=== PATIENT | male | born 1980 | race Caucasian/White ===

== ENCOUNTER 2017-03-11 20:32 | Emergency (ER) | payer OTHER ==
[~2017-03-11] VITALS: Ht 177.8 cm; Wt 93.0 kg
[~2017-03-11 20:32] MED LIST: AMRIX; BABY81CH; COLA100C2; ECOT325T5; EXCEDRIN; FLEXERIL; OXYC10TA97; PERC5TAB8; TRAM50TA2; VICO5TAB
[2017-03-11 20:46] VITALS: BP 125/81
[2017-03-11] MEDS ORDERED: AUGM875T27 PO (21:40)
[2017-03-11] MEDS ORDERED: HYDR-3713 PO (21:40)
[2017-03-11] MEDS ORDERED: AUGMENTIN 875 MG TAB PO ONE (21:45)
[2017-03-11] MEDS ORDERED: NORCO 5/325MG TABLET (BULK FOR ED) PO ONE (21:45)
--- NOTE | 2017-03-12 03:13 | REP ---
Clinical: Trauma. Technique: AP, lateral, bilateral oblique views right wrist . Findings: The carpal bones, surrounding osseous structures, soft tissues, and joint spaces are normal. There is no evidence for acute fracture or dislocation. No subcutaneous emphysema or radiodense foreign body. Impression: No acute fracture or dislocation Signed by Lane Ross MD 03/12/2017 03:04 A
--- NOTE | 2017-03-12 03:17 | REP ---
Clinical: Trauma. Technique: AP, lateral, bilateral oblique views right hand . Findings: The osseous structures and joint spaces are intact and normal. There is no evidence for acute fracture or dislocation. Surrounding soft tissues are unremarkable. No subcutaneous emphysema or radiodense foreign body. Impression: Normal examination. No acute fracture or dislocation. Signed by Lane Ross MD 03/12/2017 03:09 A
== END 2017-03-11 22:00 | disposition home or self-care (01) ==
LOC: M ED 21:56
DX: S60.221A Contusion of right hand, initial encounter (principal); W20.8XXA Other cause of strike by thrown, projected or falling object, initial encounter; Y92.89 Other specified places as the place of occurrence of the external cause; Y93.89 Activity, other specified; Y99.0 Civilian activity done for income or pay; G89.29 Other chronic pain; Z88.8 Allergy status to other drugs, medicaments and biological substances; F17.210 Nicotine dependence, cigarettes, uncomplicated

== ENCOUNTER 2017-03-25 14:38 | Emergency (ER) | payer OTHER ==
[~2017-03-25] VITALS: Ht 177.8 cm; Wt 94.8 kg
[~2017-03-25 14:38] MED LIST changes: +AUGM875T27 PO; +HYDR-3713 PO
[2017-03-25] MEDS ORDERED: NORCO, ANEXSIA 5/325MG TABLET (HYDROcodone/ACETAMINOPHEN) PO ONE (15:00)
[2017-03-25] MEDS ORDERED: ULTR50TA PO (16:53)
[2017-03-25] MEDS ORDERED: IBUP80TA PO (16:53)
[2017-03-25 17:25] VITALS: BP 148/82
--- NOTE | 2017-03-25 17:50 | REP ---
LUMBOSACRAL SPINE: Five views of the lumbosacral spine are performed. There is no compression fracture. There is slight anterior listhesis of L4 and L5, unchanged since prior exam of 10/02/2013. There is evidence of prior laminectomy at L4 and L5 with pedicle screws at L4, L5, and S1. There are disc spacers at L4-5 and L5-S1. Posterior elements of L1-L3 are intact. IMPRESSION: Post surgical changes. No evidence of acute fracture or dislocation. Signed by Juan David Champagne MD 03/26/2017 04:04 P
== END 2017-03-25 17:26 | disposition home or self-care (01) ==
LOC: M ED 17:06
DX: S30.0XXA Contusion of lower back and pelvis, initial encounter (principal); S33.9XXA Sprain of unspecified parts of lumbar spine and pelvis, initial encounter; W01.198A Fall on same level from slipping, tripping and stumbling with subsequent striking against other object, initial encounter; Y92.89 Other specified places as the place of occurrence of the external cause; Y93.89 Activity, other specified; Y99.0 Civilian activity done for income or pay; Z88.8 Allergy status to other drugs, medicaments and biological substances; F17.210 Nicotine dependence, cigarettes, uncomplicated

== ENCOUNTER → 2017-11-19 | Outpatient (CLI) | payer OTHER | LOC: M RAD 13:50 | DX: K60.3 Anal fistula (principal) | CPT/HCPCS: 74018 ==

== ENCOUNTER → 2018-01-20 | Outpatient (CLI) | payer OTHER ==
[2018-01-20 13:15] LABS: ALBUMIN/GLOBULIN RATIO 1.03 (1.00-1.93); ALKALINE PHOSPHATASE 70 U/L (45-117); ALT/SGPT 107 U/L (12-78); ANION GAP 4 MEQ/L (8-16); AST/SGOT 45 U/L (7-37); BILIRUBIN,TOTAL 0.5 MG/DL (0.2-1.0); BLOOD UREA NITROGEN 14 MG/DL (7-18); CALCIUM LEVEL 8.9 MG/DL (8.5-10.1); CARBON DIOXIDE LEVEL 30 MEQ/L (21-32); CHLORIDE LEVEL 105 MEQ/L (98-107); CREATININE FOR GFR 0.79 MG/DL (0.70-1.30); GLOMERULAR FILTRATION RATE > 60.0 (>60); GLUCOSE, FASTING 93 MG/DL (70-100); POTASSIUM SERUM 4.8 MEQ/L (3.5-5.1); SODIUM LEVEL 139 MEQ/L (136-145); TOTAL PROTEIN 7.9 GM/DL (6.4-8.2)
[2018-01-20 13:24] LABS: HEMOGLOBIN 14.7 g/dl (14.0-18.0); MEAN CORPUSCULAR HEMOGLOBIN 28.6 pg (27.0-33.0); MEAN CORPUSCULAR HGB CONC 32.7 g/dl (32.0-36.5); MEAN CORPUSCULAR VOLUME 87.5 fl (80.0-96.0); PLATELET COUNT, AUTOMATED 194 10^3/uL (150-450); RED BLOOD COUNT 5.14 10^6/uL (4.30-6.10); RED CELL DISTRIBUTION WIDTH 13.5 % (11.5-14.5); WHITE BLOOD COUNT 6.2 10^3/uL (4.0-10.0)
[2018-01-20 14:02] LABS: HIV 1&2 SCREEN CENTAUR NEGATIVE (NEGATIVE)
[2018-01-20 14:29] LABS: CHLAMYDIA DNA AMPLIFICATION NEGATIVE (NEGATIVE); GC DNA AMPLIFICATION NEGATIVE (NEGATIVE)
[2018-01-20 14:40] LABS: HEPATITIS B SURFACE ANTIGEN POSITIVE (NEGATIVE); HEPATITIS C VIRUS ABY INDEX > 11.0 INDEX (<0.8)
== END ==
LOC: M LAB 12:10
DX: F11.20 Opioid dependence, uncomplicated (principal)
CPT/HCPCS: 93005

== ENCOUNTER 2018-02-22 08:02 | Emergency (ER) | payer OTHER | END 2018-02-22 09:47 | disposition left against medical advice (07) | LOC: M ED 08:02 | DX: S39.012A Strain of muscle, fascia and tendon of lower back, initial encounter (principal); X50.9XXA Other and unspecified overexertion or strenuous movements or postures, initial encounter; Y92.89 Other specified places as the place of occurrence of the external cause; G89.29 Other chronic pain; F17.200 Nicotine dependence, unspecified, uncomplicated | CPT/HCPCS: 72110 ==

== ENCOUNTER 2018-05-13 10:48 | Emergency (ER) | payer OTHER ==
[2018-05-13] MEDS: ACETAMINOPHEN TAB 650MG DOSE (2X325MG) PO (12:51)
[2018-05-13] MEDS: IBUPROFEN 600 MG TAB PO (12:52)
== END 2018-05-13 13:22 | disposition home or self-care (01) ==
LOC: M ED 10:48
DX: Z04.1 Encounter for examination and observation following transport accident (principal); S93.401A Sprain of unspecified ligament of right ankle, initial encounter; S70.12XA Contusion of left thigh, initial encounter; V39.9XXA Occupant (driver) (passenger) of three-wheeled motor vehicle injured in unspecified traffic accident, initial encounter; Y92.89 Other specified places as the place of occurrence of the external cause; M23.92 Unspecified internal derangement of left knee; F17.200 Nicotine dependence, unspecified, uncomplicated; Z79.899 Other long term (current) drug therapy
CPT/HCPCS: 72072

== ENCOUNTER 2018-08-14 05:30 | Inpatient (IN) | payer MEDICAID, OTHER ==
[2018-08-14] MEDS: NS 1,000 ML IV ×6 (05:49→20:39)
[2018-08-14 05:50] LABS: HEMOGLOBIN 14.4 g/dl (13.5-17.5); MEAN CORPUSCULAR HEMOGLOBIN 28.9 pg (27.0-33.0); MEAN CORPUSCULAR HGB CONC 33.5 g/dl (32.0-36.5); MEAN CORPUSCULAR VOLUME 86.3 fl (80.0-96.0); PLATELET COUNT, AUTOMATED 215 10^3/uL (150-450); RED BLOOD COUNT 4.98 10^6/uL (4.30-6.10); RED CELL DISTRIBUTION WIDTH 12.8 % (11.5-14.5); WHITE BLOOD COUNT 13.7 10^3/uL (4.0-10.0)
[2018-08-14] MEDS: HALOPERIDOL 5 MG/ML VIAL (J1630) IV (05:55)
[2018-08-14] MEDS: diphenhydrAMINE INJ 50MG/ML VIAL (J1200) IV (06:00)
[2018-08-14 06:53] LABS: ACETAMINOPHEN LEVEL < 2.0 UG/ML (10.0-30.0); ALBUMIN 4.4 GM/DL (3.2-5.2); ALKALINE PHOSPHATASE 68 U/L (45-117); ALT/SGPT 116 U/L (12-78); ANION GAP 11 MEQ/L (8-16); AST/SGOT 234 U/L (7-37); BILIRUBIN,DIRECT 0.3 MG/DL (0.0-0.2); BILIRUBIN,TOTAL 0.9 MG/DL (0.2-1.0); BLOOD UREA NITROGEN 30 MG/DL (7-18); CARBON DIOXIDE LEVEL 25 MEQ/L (21-32); CHLORIDE LEVEL 105 MEQ/L (98-107); CPK CREATINE PHOSPHOKINASE 7658 U/L (39-308); CREATININE FOR GFR 1.04 MG/DL (0.70-1.30); ETHYL ALCOHOL (ETHANOL) < 0.003 % (0.000-0.010); GLOMERULAR FILTRATION RATE > 60.0 (>60); GLUCOSE, FASTING 96 MG/DL (70-100); POTASSIUM SERUM 3.8 MEQ/L (3.5-5.1); SALICYLATE LEVEL 2.4 MG/DL (5.0-30.0); SODIUM LEVEL 141 MEQ/L (136-145); TOTAL PROTEIN 8.4 GM/DL (6.4-8.2)
[2018-08-14] MEDS ORDERED: ONDANSETRON 4MG/2ML VIAL (J2405) IV (08:15)
[2018-08-14] MEDS: ENOXAPARIN 40 MG/0.4 ML SYRINGE (J1650) SC (11:10)
[2018-08-14 17:18] LABS: AMPHETAMINES LEVEL URINE NEGATIVE (NEGATIVE); BARBITURATES URINE NEGATIVE (NEGATIVE); BENZODIAZEPINES URINE NEGATIVE (NEGATIVE); CANNABINOIDS URINE NEGATIVE (NEGATIVE); COCAINE METABOLITE URINE NEGATIVE (NEGATIVE); METHADONE URINE NEGATIVE (NEGATIVE); OPIATES URINE POSITIVE (NEGATIVE); PHENCYCLIDINE URINE NEGATIVE (NEGATIVE)
[2018-08-14] MEDS: BUPRENORPHINE/NALOXONE 8-2MG SUBLINGUAL TABLET(SUBOXONE) PO (17:49)
[2018-08-14] MEDS: GABAPENTIN 300 MG CAP PO (20:39)
[2018-08-14] MEDS: NICOTINE 21MG/24HR 1 EA TRANSDERMAL TD (20:39)
[2018-08-15] MEDS: IBUPROFEN 600 MG TAB PO (03:24)
[2018-08-15] MEDS: NS 1,000 ML IV ×4 (04:48→22:57)
[2018-08-15 05:56] LABS: HEMATOCRIT 37.1 % (42.0-52.0); MEAN CORPUSCULAR HEMOGLOBIN 29.2 pg (27.0-33.0); MEAN CORPUSCULAR HGB CONC 32.6 g/dl (32.0-36.5); MEAN CORPUSCULAR VOLUME 89.6 fl (80.0-96.0); PLATELET COUNT, AUTOMATED 120 10^3/uL (150-450); RED BLOOD COUNT 4.14 10^6/uL (4.30-6.10); RED CELL DISTRIBUTION WIDTH 12.9 % (11.5-14.5); WHITE BLOOD COUNT 5.1 10^3/uL (4.0-10.0)
[2018-08-15 06:06] LABS: HEMOGLOBIN 12.1 g/dl (13.5-17.5)
[2018-08-15 06:37] LABS: ALBUMIN 2.9 GM/DL (3.2-5.2); ALBUMIN/GLOBULIN RATIO 0.88 (1.00-1.93); ALKALINE PHOSPHATASE 60 U/L (45-117); ALT/SGPT 81 U/L (12-78); ANION GAP 7 MEQ/L (8-16); AST/SGOT 129 U/L (7-37); BILIRUBIN,TOTAL 0.4 MG/DL (0.2-1.0); BLOOD UREA NITROGEN 13 MG/DL (7-18); CALCIUM LEVEL 7.8 MG/DL (8.5-10.1); CARBON DIOXIDE LEVEL 26 MEQ/L (21-32); CHLORIDE LEVEL 110 MEQ/L (98-107); CPK CREATINE PHOSPHOKINASE 2525 U/L (39-308); CREATININE FOR GFR 0.64 MG/DL (0.70-1.30); GLOMERULAR FILTRATION RATE > 60.0 (>60); GLUCOSE, FASTING 91 MG/DL (70-100); POTASSIUM SERUM 3.6 MEQ/L (3.5-5.1); SODIUM LEVEL 143 MEQ/L (136-145); TOTAL PROTEIN 6.2 GM/DL (6.4-8.2)
[2018-08-15] MEDS: BUPRENORPHINE/NALOXONE 8-2MG SUBLINGUAL TABLET(SUBOXONE) PO (08:57)
[2018-08-15] MEDS: GABAPENTIN 300 MG CAP PO ×3 (08:57→20:29)
[2018-08-15] MEDS: ENOXAPARIN 40 MG/0.4 ML SYRINGE (J1650) SC (08:58)
[2018-08-15 10:10] LABS: HEPATITIS B CORE ANTIBODY IGM NEGATIVE (NEGATIVE)
[2018-08-15 10:11] LABS: HEPATITIS A ANTIBODY IGM NEGATIVE (NEGATIVE)
[2018-08-15 10:50] LABS: HIV 1&2 SCREEN CENTAUR NEGATIVE (NEGATIVE)
[2018-08-15 12:49] LABS: HEPATITIS C VIRUS ABY INDEX > 11.0 INDEX (<0.8)
[2018-08-15 12:49] LABS: HEPATITIS B SURFACE ANTIGEN POSITIVE (NEGATIVE)
[2018-08-15] MEDS: NICOTINE 21MG/24HR 1 EA TRANSDERMAL TD (20:29)
[2018-08-16] MEDS: ACETAMINOPHEN TAB 650MG DOSE (2X325MG) PO (00:32)
[2018-08-16] MEDS: NS 1,000 ML IV ×4 (05:37→21:34)
[2018-08-16 06:40] LABS: HEMATOCRIT 36.9 % (42.0-52.0); MEAN CORPUSCULAR HEMOGLOBIN 29.6 pg (27.0-33.0); MEAN CORPUSCULAR HGB CONC 32.5 g/dl (32.0-36.5); MEAN CORPUSCULAR VOLUME 90.9 fl (80.0-96.0); PLATELET COUNT, AUTOMATED 143 10^3/uL (150-450); RED BLOOD COUNT 4.06 10^6/uL (4.30-6.10); RED CELL DISTRIBUTION WIDTH 12.9 % (11.5-14.5); WHITE BLOOD COUNT 4.7 10^3/uL (4.0-10.0)
[2018-08-16 07:09] LABS: POS COUNT POS FLAG
[2018-08-16 07:30] LABS: ALBUMIN 2.9 GM/DL (3.2-5.2); ALBUMIN/GLOBULIN RATIO 0.85 (1.00-1.93); ALKALINE PHOSPHATASE 79 U/L (45-117); ALT/SGPT 81 U/L (12-78); ANION GAP 6 MEQ/L (8-16); AST/SGOT 89 U/L (7-37); BILIRUBIN,TOTAL 0.2 MG/DL (0.2-1.0); BLOOD UREA NITROGEN 10 MG/DL (7-18); CALCIUM LEVEL 8.4 MG/DL (8.5-10.1); CARBON DIOXIDE LEVEL 27 MEQ/L (21-32); CHLORIDE LEVEL 109 MEQ/L (98-107); CPK CREATINE PHOSPHOKINASE 1241 U/L (39-308); CREATININE FOR GFR 0.68 MG/DL (0.70-1.30); GLOMERULAR FILTRATION RATE > 60.0 (>60); GLUCOSE, FASTING 123 MG/DL (70-100); POTASSIUM SERUM 4.2 MEQ/L (3.5-5.1); SODIUM LEVEL 142 MEQ/L (136-145); TOTAL PROTEIN 6.3 GM/DL (6.4-8.2)
[2018-08-16] MEDS: BUPRENORPHINE/NALOXONE 8-2MG SUBLINGUAL TABLET(SUBOXONE) PO (08:34)
[2018-08-16] MEDS: GABAPENTIN 300 MG CAP PO ×3 (08:34→21:33)
[2018-08-16] MEDS: ENOXAPARIN 40 MG/0.4 ML SYRINGE (J1650) SC (08:34)
[2018-08-16] MEDS ORDERED: NS 1,000 ML IV (12:30)
[2018-08-16] MEDS: NICOTINE 21MG/24HR 1 EA TRANSDERMAL TD (21:34)
[2018-08-17 06:35] LABS: HEMATOCRIT 37.6 % (42.0-52.0); HEMOGLOBIN 12.7 g/dl (13.5-17.5); MEAN CORPUSCULAR HEMOGLOBIN 29.2 pg (27.0-33.0); MEAN CORPUSCULAR HGB CONC 33.8 g/dl (32.0-36.5); MEAN CORPUSCULAR VOLUME 86.4 fl (80.0-96.0); PLATELET COUNT, AUTOMATED 195 10^3/uL (150-450); RED BLOOD COUNT 4.35 10^6/uL (4.30-6.10); RED CELL DISTRIBUTION WIDTH 12.5 % (11.5-14.5); WHITE BLOOD COUNT 5.7 10^3/uL (4.0-10.0)
[2018-08-17 06:49] LABS: ALBUMIN 3.2 GM/DL (3.2-5.2); ALBUMIN/GLOBULIN RATIO 0.91 (1.00-1.93); ALKALINE PHOSPHATASE 67 U/L (45-117); ALT/SGPT 79 U/L (12-78); ANION GAP 5 MEQ/L (8-16); AST/SGOT 69 U/L (7-37); BILIRUBIN,TOTAL 0.3 MG/DL (0.2-1.0); BLOOD UREA NITROGEN 11 MG/DL (7-18); CALCIUM LEVEL 8.4 MG/DL (8.5-10.1); CARBON DIOXIDE LEVEL 29 MEQ/L (21-32); CHLORIDE LEVEL 108 MEQ/L (98-107); CPK CREATINE PHOSPHOKINASE 634 U/L (39-308); CREATININE FOR GFR 0.71 MG/DL (0.70-1.30); GLOMERULAR FILTRATION RATE > 60.0 (>60); GLUCOSE, FASTING 90 MG/DL (70-100); SODIUM LEVEL 142 MEQ/L (136-145); TOTAL PROTEIN 6.7 GM/DL (6.4-8.2)
[2018-08-17] MEDS: NS 1,000 ML IV (08:17)
[2018-08-17] MEDS: BUPRENORPHINE/NALOXONE 8-2MG SUBLINGUAL TABLET(SUBOXONE) PO (08:51)
[2018-08-17] MEDS: GABAPENTIN 300 MG CAP PO (08:51)
[2018-08-17] MEDS: ENOXAPARIN 40 MG/0.4 ML SYRINGE (J1650) SC (09:00)
[2018-08-18 08:09] LABS: HCV RNA NAA QUALITATIVE Positive (Negative)
[2018-08-19 08:29] LABS: HBsAG CONFIRM SCRN Confirm. indicated (Negative); HBsAG NEUTRALIZATION Positive (.)
== END 2018-08-17 10:55 | disposition home or self-care (01) | DRG 351 ==
LOC: M MS5PR 08-15 14:31 → M ED 05:30 → M ED INP 07:59 → M PCU 13:36
PROVIDERS: Hospitalist
DX: M62.82 Rhabdomyolysis (principal); B18.1 Chronic viral hepatitis B without delta-agent; F17.210 Nicotine dependence, cigarettes, uncomplicated; R74.0 Nonspecific elevation of levels of transaminase and lactic acid dehydrogenase [LDH]; D72.829 Elevated white blood cell count, unspecified; B18.2 Chronic viral hepatitis C; Z79.899 Other long term (current) drug therapy

== ENCOUNTER 2019-02-10 15:19 | Inpatient (IN) | payer MEDICAID ==
[~2019-02-10] VITALS: Ht 177.8 cm; Wt 80.9 kg
[~2019-02-10 15:19] MED LIST changes: -AUGM875T27 PO; +AUGM875T28 PO; +GABA600T4 PO; +IBUP-1022 PO; +IBUP80TA PO; +IBUPOTC PO; +NICO21PAT TD; +PATIENT COMMENT; +ROBA500T PO; +SUBO8MIS PO; +SUBO8MIS SL; +ULTR50TA8 PO
[2019-02-10] MEDS ORDERED: MAGIC MOUTHWASH SUSPENSION BTL SS ONE (18:15)
[2019-02-10] MEDS ORDERED: ADACEL/BOOSTRIX VACCINE (DIPHTH/PERTUSS/ACELL/TETANUS)0.5ML SYR (90715) IM ONE (18:15)
[2019-02-10 19:33] LABS: HEMATOCRIT 45.2 % (42.0-52.0); MEAN CORPUSCULAR HEMOGLOBIN 29.4 pg (27.0-33.0); MEAN CORPUSCULAR HGB CONC 33.2 g/dl (32.0-36.5); MEAN CORPUSCULAR VOLUME 88.6 fl (80.0-96.0); PLATELET COUNT, AUTOMATED 175 10^3/uL (150-450); WHITE BLOOD COUNT 8.3 10^3/uL (4.0-10.0)
[2019-02-10 19:51] LABS: BLOOD UREA NITROGEN 31 MG/DL (7-18); CALCIUM LEVEL 9.1 MG/DL (8.5-10.1); CARBON DIOXIDE LEVEL 26 MEQ/L (21-32); CHLORIDE LEVEL 104 MEQ/L (98-107); CREATININE FOR GFR 0.88 MG/DL (0.70-1.30); GLOMERULAR FILTRATION RATE > 60.0 (>60); GLUCOSE, FASTING 73 MG/DL (70-100); POTASSIUM SERUM 4.2 MEQ/L (3.5-5.1); SODIUM LEVEL 138 MEQ/L (136-145)
[2019-02-10 19:54] LABS: AMPHETAMINES LEVEL URINE POSITIVE (NEGATIVE); BARBITURATES URINE NEGATIVE (NEGATIVE); BENZODIAZEPINES URINE NEGATIVE (NEGATIVE); CANNABINOIDS URINE NEGATIVE (NEGATIVE); COCAINE METABOLITE URINE NEGATIVE (NEGATIVE); METHADONE URINE NEGATIVE (NEGATIVE); OPIATES URINE POSITIVE (NEGATIVE); PHENCYCLIDINE URINE NEGATIVE (NEGATIVE)
--- NOTE | 2019-02-10 22:20 | REP ---
Clinical: Altered mental status . Comparison: None . Findings: The ventricles, sulci, and cisterns are normal in position and appearance. Champagne-white differentiation is maintained. No acute intracranial hemorrhage, mass/mass effect, pathology or trauma/injury. No evidence for acute infarction. No extra-axial fluid collection. Calvarium is intact. Paranasal sinuses and mastoid air cells are clear. Impression: Normal noncontrast head CT. No evidence for acute intracranial pathology or trauma/injury. Electronically Signed by Lane Ross MD 02/10/2019 10:18 P
[2019-02-10] MEDS ORDERED: diphenhydrAMINE INJ 50MG/ML VIAL (J1200) IM ONE (23:00)
[2019-02-10] MEDS ORDERED: LORazepam 2 MG/ML VIAL (J2060) IM ONE (23:00)
[2019-02-10] MEDS ORDERED: HALOPERIDOL 5 MG/ML VIAL (J1630) IM ONE (23:00)
[2019-02-10 23:07] LABS: CPK CREATINE PHOSPHOKINASE 2147 U/L (39-308)
[2019-02-10] MEDS ORDERED: NS 2,450 ML in APPROPRIATE DILUENT 1 EA IV ONE (23:45)
[2019-02-11] MEDS ORDERED: LORazepam 2 MG/ML VIAL (J2060) IV PRN (00:15)
[2019-02-11] MEDS ORDERED: HALOPERIDOL 5 MG/ML VIAL (J1630) IV PRN (00:30)
[2019-02-11 00:39] LABS: ALBUMIN 4.4 GM/DL (3.2-5.2); ALT/SGPT 79 U/L (12-78); BILIRUBIN,DIRECT 0.5 MG/DL (0.0-0.2); BILIRUBIN,TOTAL 1.9 MG/DL (0.2-1.0); C REACTIVE PROTEIN QUANTITATIV 5.69 MG/DL (0.00-0.30); SALICYLATE LEVEL < 1.7 MG/DL (5.0-30.0); TOTAL PROTEIN 8.3 GM/DL (6.4-8.2)
[2019-02-11 00:51] VITALS: BP 112/66
[2019-02-11 00:51] LABS: ACETAMINOPHEN LEVEL < 2.0 UG/ML (10.0-30.0); MAGNESIUM LEVEL 1.9 MG/DL (1.8-2.4); TROPONIN I < 0.02 NG/ML (< 0.10)
[2019-02-11] MEDS: NS 1,000 ML IV SCH ×6 (02:43→21:57)
[2019-02-11] MEDS: HEPARIN SOD (PORCINE) 5000 UNITS/ML VIAL SC SCH ×3 (05:23→21:58)
[2019-02-11 06:00] VITALS: BP 113/64
[2019-02-11 06:05] LABS: HEMATOCRIT 39.9 % (42.0-52.0); HEMOGLOBIN 13.1 g/dl (13.5-17.5); MEAN CORPUSCULAR HEMOGLOBIN 29.4 pg (27.0-33.0); MEAN CORPUSCULAR HGB CONC 32.8 g/dl (32.0-36.5); MEAN CORPUSCULAR VOLUME 89.7 fl (80.0-96.0); RED BLOOD COUNT 4.45 10^6/uL (4.30-6.10); WHITE BLOOD COUNT 4.4 10^3/uL (4.0-10.0)
[2019-02-11 06:18] LABS: INR 1.18; PARTIAL THROMBOPLASTIN TIME 36.9 SECONDS (25.4-37.6); PROTHROMBIN TIME 15.2 SECONDS (12.1-14.4)
[2019-02-11 06:49] LABS: BLOOD UREA NITROGEN 24 MG/DL (7-18); CALCIUM LEVEL 7.5 MG/DL (8.5-10.1); CARBON DIOXIDE LEVEL 26 MEQ/L (21-32); CHLORIDE LEVEL 111 MEQ/L (98-107); CPK CREATINE PHOSPHOKINASE 1475 U/L (39-308); CREATININE FOR GFR 0.65 MG/DL (0.70-1.30); GLOMERULAR FILTRATION RATE > 60.0 (>60); GLUCOSE, FASTING 80 MG/DL (70-100); POTASSIUM SERUM 3.8 MEQ/L (3.5-5.1); SODIUM LEVEL 142 MEQ/L (136-145); TROPONIN I 0.02 NG/ML (< 0.10)
[2019-02-11 06:51] LABS: PLATELET COUNT, AUTOMATED 111 10^3/uL (150-450)
--- NOTE | 2019-02-11 07:41 | HPE ---
DATE OF ADMISSION: 02/10/2019 CHIEF COMPLAINT: Agitated behavior, confused. HISTORY OF PRESENT ILLNESS: The patient is a 38-year-old male. He has a significant past medical history of hepatitis not otherwise specified and polysubstance abuse who presents to the emergency room confused and agitated. There is a questionable psych history. Upon my encounter with the patient, he had been sedated due to agitation and belligerent behavior so the history was thus limited. Other history was obtained from the ER provider as well as the nurse at bedside and review of the chart. Previous admissions are noted for rhabdomyolysis secondary to substance abuse. As per ER provider, the patient presented complaining that he was bitten by a snake, however, after survey of the skin there was no site to suggest this. However, the patient then admittedly stated that he was sober previously from history of meth and opiate use and again started using over the past few days. This was obtained from the ER nurse. Labs on the patient on admission were notable for a CPK of 2147, urine toxicology positive for opiates and amphetamines. CT of head was negative. Unable to obtain much history from the patient. He is arousable. He cannot state how he got here. He denies any chest pain or shortness of breath. His vitals are stable. PAST MEDICAL HISTORY: As per chart, hepatitis and polysubstance abuse. PSYCH HISTORY: Not otherwise specified. ALLERGIES: No known drug allergies. CURRENT MEDICATIONS: Unknown. SURGICAL HISTORY: Unknown. FAMILY HISTORY: Unknown. REVIEW OF SYSTEMS: Unable to complete secondary to underlying mentation. VITALS ON ADMISSION: Temperature 99, pulse 103, respirations 19, satting at 97% on room air, blood pressure 140/74. PHYSICAL EXAMINATION: He is a disheveled appearing younger male who is in no apparent distress. Head is normocephalic, atraumatic. Eyes: Pupils equal round and reactive to light. Lungs: Good entry in the anterior chest. Cardiovascular: Regular rate and rhythm. Abdomen: Appears to be soft. Extremities: No edema. Neurologic: He is arousable to noxious stimuli. Moves all four extremities. LABS AND IMAGING: Completed in the ER. White count 8, hemoglobin/hematocrit (H/H) 15/45, and platelet count 175. Chemistry shows a BUN and creatinine of 3 over 0.88. CPK is 2147. Urine myoglobin is positive. Urine toxicology shows opiates and amphetamines. CT of head is unremarkable. ASSESSMENT AND PLAN: 1. Metabolic encephalopathy secondary to polysubstance abuse with opiate and methamphetamine abuse resulting in rhabdomyolysis. Will rule out other causes. Will get an ammonia level. Coags. Will get EKG. Keep on telemetry. Will cycle history his troponins. Will get Tylenol and salicylate levels. Will keep the patient on one-to-one. Will aggressively fluid hydrate with normal saline at 250 mL/hr. Will trend CPKs. Trending can be discontinued once CPK drops below 250. Will trend creatinine daily as well as the electrolytes. 2. History of hepatitis not otherwise specified. Will also get an ammonia level, coags and liver function tests. Will do Haldol as needed for hallucinations and Ativan as needed agitation. The patient will likely need a psych evaluation in the a.m. psych was already consulted in the ER, however, the medical admission was requested due to elevated CPK and positive myoglobin in the urine. 3. Supportive deep vein thrombosis (DVT) prophylaxis with heparin subcutaneous. 4. GI prophylaxis not indicated. 5. Diet. Regular as tolerated. 6. The patient to be admitted to the medical floor with telemetry, kept on one-to-one until medically stable and to be subsequently evaluated by psychiatry.
[2019-02-11 14:00] VITALS: BP 116/73
--- NOTE | 2019-02-11 16:53 | IPN ---
DATE: 02/11/2019 SUBJECTIVE: The patient is seen and examined in the room today. The patient is sleeping during the encounter. Per the sitter, the patient was able to maintain some alertness and wakefulness but then fell back to sleep. He has been sleeping most of the time. According to the patient, he came to the hospital because he got bit by a lizard, other than that he does not really remember why he came to the hospital. OBJECTIVE: VITAL SIGNS: Temperature 97.3, pulse 62, respirations 15, blood pressure 113/64, pulse oximetry 96% on room air. GENERAL: The patient is alert and awake, comfortable. HEENT: Normocephalic, atraumatic. Extraocular muscles are grossly intact. CARDIOVASCULAR: Positive S1, S2. Regular rate. LUNGS: Clear to auscultation bilaterally. ABDOMEN: Soft, nontender. Bowel sounds present. EXTREMITIES: No edema. LABORATORY DATA: WBC is 4.4, hemoglobin 13.1, hematocrit 39.9, platelet count is 111, sodium is 142, potassium 3.8, chloride 111, carbon dioxide 26, BUN 24, creatinine 0.65, GFR greater than 60, fasting glucose 80, calcium 7.4, total CK is 1475, troponin I is 0.02. ASSESSMENT AND PLAN: 1. Metabolic encephalopathy due to polysubstance abuse. The patient tested positive for opiates and amphetamines, which resulted in rhabdomyolysis. The patient presented with agitation and aggressive behavior. Sitter in place. As needed medication to help control agitation. 2. Rhabdomyolysis. IV support. Total CK is improving since admission. 3. Hepatitis B and C. The patient tested positive for hepatitis B and C. We will run viral genotype and RNA quantitative. 4. Deep vein thrombosis (DVT) prophylaxis. On heparin.
--- NOTE | 2019-02-11 21:27 | ECGEPIP ---
Stationary ECG Study [facility] Test Date: 2019-02-11 Pat Name: SALVADOR AREVALO Department: Room: [place] [address] Gender: M Group Home Counselor: CANDIDO : 1980 Requested By: ISIDRO SATURDAY Order Number: [id number] Reading MD: Luciano Rodriguez Measurements Intervals [place] Rate: 60 P: 54 [place]: 185 QRS: -25 QRSD: 87 T: 26 QT: 443 QTc: 444 Interpretive Statements SINUS RHYTHM WITH MARKED SINUS ARRHYTHMIA BORDERLINE LEFT AXIS DEVIATION SIMILAR TO 08/14/18, QT INTERVAL IS NOW MORMAL Electronically Signed On 02-11-2019 21:27:33 EDT by Luciano Rodriguez
[2019-02-11 22:00] VITALS: BP 139/82
[2019-02-12] MEDS: NS 1,000 ML IV SCH ×4 (02:32→11:56)
[2019-02-12] MEDS: HEPARIN SOD (PORCINE) 5000 UNITS/ML VIAL SC SCH (05:55)
[2019-02-12 06:00] VITALS: BP 141/81
[2019-02-12 06:11] LABS: HEMATOCRIT 38.4 % (42.0-52.0); HEMOGLOBIN 12.5 g/dl (13.5-17.5); MEAN CORPUSCULAR HEMOGLOBIN 29.6 pg (27.0-33.0); MEAN CORPUSCULAR HGB CONC 32.6 g/dl (32.0-36.5); MEAN CORPUSCULAR VOLUME 90.8 fl (80.0-96.0); PLATELET COUNT, AUTOMATED 134 10^3/uL (150-450); RED BLOOD COUNT 4.23 10^6/uL (4.30-6.10); WHITE BLOOD COUNT 4.2 10^3/uL (4.0-10.0)
[2019-02-12 06:43] LABS: BLOOD UREA NITROGEN 9 MG/DL (7-18); CALCIUM LEVEL 7.7 MG/DL (8.5-10.1); CARBON DIOXIDE LEVEL 26 MEQ/L (21-32); CHLORIDE LEVEL 110 MEQ/L (98-107); CPK CREATINE PHOSPHOKINASE 810 U/L (39-308); GLOMERULAR FILTRATION RATE > 60.0 (>60); GLUCOSE, FASTING 109 MG/DL (70-100); SODIUM LEVEL 141 MEQ/L (136-145)
--- NOTE | 2019-02-12 20:42 | DSES ---
DATE OF ADMISSION: 02/10/2019 DATE OF DISCHARGE: 02/12/2019 PRIMARY CARE PROVIDER: Matt Suarez CONSULTANTS: None. DISCHARGE DIAGNOSES: 1. Metabolic encephalopathy secondary to polysubstance abuse. 2. Rhabdomyolysis. 3. Active hepatitis B and hepatitis C. HOSPITALIZATION COURSE: The patient is a 38-year-old male, presented to [facility] on 02/10/2019 with confusion and agitated behavior and diagnostic workup started in the emergency room. The patient was found to have polysubstance usage and patient was also found to have rhabdomyolysis. Patient admitted under hospitalist service, patient was placed on nothing by mouth, started on fluid support. Medication was given to the patient to control the agitation. Sitter was ordered. Later the patient's mentation started to recover. Patient was able to tolerate more oral intake. Mental status and physical status has returned to his baseline, and patient determined stable for discharge with the recommendation to followup with primary care provider in 1 week. Patient was also recommended to avoid recreational drug usage. Patient has a history of hepatitis C and hepatitis B. Patient has an appointment with infectious disease at the beginning of February. VITAL SIGNS ON THE DAY OF DISCHARGE: Showed temperature 97.8, pulse 58, respirations 16, blood pressure 141/81, pulse oximetry 94% in room air. LABORATORY DATA: WBC 4.2, hemoglobin 12.5, hematocrit 38.4, platelet count is 134. Sodium is 141, potassium 4, chloride is 110, carbon dioxide 26, BUN is 9, creatinine 0.6, GFR greater than 60, fasting glucose is 109, calcium 7.7, total creatinine kinase 810. Urine toxicology is positive for opiates and amphetamines. Urinalysis positive for myoglobin. IMAGING STUDIES: CT of the head without contrast showed normal noncontrast head CT. No evidence of acute intracranial pathology or trauma/injury. DISCHARGE MEDICATION: None. DISCHARGE RECOMMENDATIONS: Discontinue line. Discharge home. Activity as tolerated. Diet as tolerated. Recommend patient avoid recreational drug usage. Recommend patient followup with primary care provider in 1 week. Prior to discharge, social human services assistants has been assisting in the disposition. Patient's caser shoe parts in the outpatient setting was contacted. DISCHARGE CONDITION: Fair. DISCHARGE TIME: Greater than 30 minutes including coordinating all the care and disposition planning.
[2019-02-13 11:19] LABS: HEPATITIS A ANTIBODY IGM NEGATIVE (NEGATIVE); HEPATITIS B CORE ANTIBODY IGM NEGATIVE (NEGATIVE)
[2019-02-13 11:22] LABS: HEPATITIS C VIRUS ABY INDEX > 11.0 INDEX (<0.8)
[2019-02-13 11:23] LABS: HEPATITIS B SURFACE ANTIGEN POSITIVE (NEGATIVE)
== END 2019-02-12 12:58 | disposition home or self-care (01) | DRG 812 ==
LOC: M ED 15:19 → M ED INP 23:56 → M MSPAV 02-11 00:42
PROVIDERS: ADMIT Internal Medicine; ATTEND Internal Medicine
DX: T43.621A Poisoning by amphetamines, accidental (unintentional), initial encounter (principal); M62.82 Rhabdomyolysis; F11.10 Opioid abuse, uncomplicated; G92 Toxic encephalopathy; T40.601A Poisoning by unspecified narcotics, accidental (unintentional), initial encounter; B19.20 Unspecified viral hepatitis C without hepatic coma; B19.10 Unspecified viral hepatitis B without hepatic coma; F15.10 Other stimulant abuse, uncomplicated

== ENCOUNTER → 2019-02-17 | Outpatient (REF) | payer MEDICAID, OTHER ==
[2019-02-17 16:25] LABS: INR 1.09; PROTHROMBIN TIME 14.2 SECONDS (12.1-14.4)
[2019-02-21 00:08] LABS: HEPATITIS A IgG TOTAL Negative (Negative); HEPATITIS B CORE ANTIBODY IGG Positive (Negative); HEPATITIS BE ANTIGEN Negative (Negative)
[2019-02-21 08:23] LABS: HBV HBV DNA not detected IU/mL (.)
== END ==
LOC: M SFHCPLAZ 13:49
PROVIDERS: ATTEND Internal Medicine Infectious Disease
DX: B18.2 Chronic viral hepatitis C (principal)

== ENCOUNTER → 2019-02-23 | Outpatient (CLI) | payer MEDICAID | LOC: M OUTALCOH 10:46 | PROVIDERS: ATTEND Psychiatry & Neurology Psychiatry | DX: F11.20 Opioid dependence, uncomplicated (principal); F15.10 Other stimulant abuse, uncomplicated ==

== ENCOUNTER 2019-11-03 01:18 | Emergency (ER) | payer MEDICAID ==
[~2019-11-03] VITALS: Ht 177.8 cm; Wt 86.4 kg
[2019-11-03] MEDS ORDERED: ANUS25SU PR (02:20)
[2019-11-03 02:30] VITALS: BP 125/67
== END 2019-11-03 02:56 | disposition home or self-care (01) ==
LOC: M ED 01:18
DX: K64.9 Unspecified hemorrhoids (principal); B18.1 Chronic viral hepatitis B without delta-agent; B18.2 Chronic viral hepatitis C; F17.200 Nicotine dependence, unspecified, uncomplicated; F11.10 Opioid abuse, uncomplicated; F15.10 Other stimulant abuse, uncomplicated

== ENCOUNTER 2019-11-19 21:20 | Emergency (ER) | payer MEDICAID ==
[~2019-11-19] VITALS: Ht 175.3 cm; Wt 84.1 kg
[~2019-11-19 21:20] MED LIST changes: +ANUS25SU PR
[2019-11-19] MEDS ORDERED: SUBO8MIS SL (21:46)
[2019-11-19] MEDS ORDERED: NS 1,000 ML IV ONE (22:15)
[2019-11-19 22:42] LABS: BASO % 0.1 % (0.0-1.0); EOS # 0.1 10^3/uL (0.0-0.5); EOS % 0.4 % (0.0-3.0); HEMOGLOBIN 12.6 g/dl (13.5-17.5); LYMPH # 3.2 10^3/uL (1.5-5.0); LYMPH % 26.8 % (24.0-44.0); MEAN CORPUSCULAR HEMOGLOBIN 28.4 pg (27.0-33.0); MEAN CORPUSCULAR HGB CONC 32.3 g/dl (32.0-36.5); MONO # 1.2 10^3/uL (0.0-0.8); MONO % 9.7 % (0.0-5.0); NEUTROPHILS # 7.4 10^3/uL (1.5-8.5); NEUTROPHILS % 62.5 % (36.0-66.0); PLATELET COUNT, AUTOMATED 260 10^3/uL (150-450); RED BLOOD COUNT 4.43 10^6/uL (4.30-6.10); WHITE BLOOD COUNT 11.9 10^3/uL (4.0-10.0)
[2019-11-19 23:26] LABS: ACETAMINOPHEN LEVEL < 2.0 UG/ML (10.0-30.0); ALBUMIN 2.9 GM/DL (3.2-5.2); ALT/SGPT 41 U/L (12-78); BILIRUBIN,DIRECT 0.2 MG/DL (0.0-0.2); BILIRUBIN,TOTAL 0.5 MG/DL (0.2-1.0); BLOOD UREA NITROGEN 11 MG/DL (7-18); CALCIUM LEVEL 7.8 MG/DL (8.5-10.1); CARBON DIOXIDE LEVEL 25 MEQ/L (21-32); CHLORIDE LEVEL 104 MEQ/L (98-107); CK-MB VALUE MASS 3.2 NG/ML (<3.6); CPK CREATINE PHOSPHOKINASE 263 U/L (39-308); CREATININE FOR GFR 0.59 MG/DL (0.70-1.30); ETHYL ALCOHOL (ETHANOL) < 0.003 % (0.000-0.010); GLOMERULAR FILTRATION RATE > 60.0 (>60); GLUCOSE, FASTING 113 MG/DL (70-100); MB/CK RELATIVE INDEX 1.22 (< OR =4); POTASSIUM SERUM 3.7 MEQ/L (3.5-5.1); SALICYLATE LEVEL < 1.7 MG/DL (5.0-30.0); SODIUM LEVEL 137 MEQ/L (136-145); THYROID STIMULATING HORMONE 0.225 uIU/ML (0.358-3.740); TOTAL PROTEIN 6.9 GM/DL (6.4-8.2)
[2019-11-20 01:21] LABS: MYOGLOBIN SCREEN, URINE NEGATIVE (NEGATIVE)
[2019-11-20 01:43] LABS: AMPHETAMINES LEVEL URINE POSITIVE (NEGATIVE); BARBITURATES URINE NEGATIVE (NEGATIVE); BENZODIAZEPINES URINE NEGATIVE (NEGATIVE); CANNABINOIDS URINE NEGATIVE (NEGATIVE); COCAINE METABOLITE URINE NEGATIVE (NEGATIVE); METHADONE URINE NEGATIVE (NEGATIVE); OPIATES URINE NEGATIVE (NEGATIVE); PHENCYCLIDINE URINE NEGATIVE (NEGATIVE)
[2019-11-20] MEDS ORDERED: ACETAMINOPHEN TAB 650MG DOSE (2X325MG) PO ONE (04:30)
[2019-11-20 04:52] VITALS: BP 120/65
--- NOTE | 2019-11-20 15:18 | ECGEPIP ---
[facility] - ED Test Date: 2019-11-19 Pat Name: SALVADOR AREVALO Department: Room: - Gender: Male Intensive Care Specialist: DANA : 1980 Requested By: LOUIS Wheatley Order Number: [id number] Reading MD: Tavon Valderrama Measurements Intervals [place] Rate: 90 P: 70 [place]: 172 QRS: -22 QRSD: 76 T: 38 QT: 382 QTc: 469 Interpretive Statements SINUS RHYTHM SEPTAL MYOCARDIAL INFARCTION, OF INDETERMINATE AGE Similar to tracing done 02-11-19 with increased rate and increased artifact Electronically Signed on 11-20-2019 15:18:20 EST by Tavon Valderrama
== END 2019-11-20 05:38 | disposition home or self-care (01) ==
LOC: M ED 21:20
DX: F15.10 Other stimulant abuse, uncomplicated (principal); I21.29 ST elevation (STEMI) myocardial infarction involving other sites; F17.200 Nicotine dependence, unspecified, uncomplicated; Z79.899 Other long term (current) drug therapy
CPT/HCPCS: 80048; 80076; 80307; 81001; 81002; 82550; 82553; 84443; 85025; 93005; 96360; 96361; 99285; G0480

== ENCOUNTER 2020-04-05 05:52 | Inpatient (IN) | payer MEDICAID ==
[2020-04-05 06:45] LABS: BASO % 0.2 % (0.0-1.0); EOS # 0.1 10^3/uL (0.0-0.5); EOS % 0.5 % (0.0-3.0); HEMATOCRIT 40.6 % (42.0-52.0); HEMOGLOBIN 14.1 g/dl (13.5-17.5); LYMPH # 1.8 10^3/uL (1.5-5.0); MEAN CORPUSCULAR HEMOGLOBIN 29.7 pg (27.0-33.0); MEAN CORPUSCULAR HGB CONC 34.7 g/dl (32.0-36.5); MEAN CORPUSCULAR VOLUME 85.5 fl (80.0-96.0); MONO # 1.5 10^3/uL (0.0-0.8); MONO % 15.5 % (0.0-5.0); NEUTROPHILS # 6.4 10^3/uL (1.5-8.5); NEUTROPHILS % 65.6 % (36.0-66.0); PLATELET COUNT, AUTOMATED 188 10^3/uL (150-450); RED BLOOD COUNT 4.75 10^6/uL (4.30-6.10); WHITE BLOOD COUNT 9.8 10^3/uL (4.0-10.0)
[2020-04-05] MEDS ORDERED: NS 1,000 ML IV ONE ×2 (07:00→07:45)
--- NOTE | 2020-04-05 07:18 | ECGEPIP ---
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
[2020-04-05 07:29] LABS: ACETAMINOPHEN LEVEL < 2.0 UG/ML (10.0-30.0); ALBUMIN 3.6 GM/DL (3.2-5.2); ALT/SGPT 107 U/L (12-78); BILIRUBIN,DIRECT 0.5 MG/DL (0.0-0.2); BILIRUBIN,TOTAL 1.2 MG/DL (0.2-1.0); BLOOD UREA NITROGEN 20 MG/DL (7-18); CALCIUM LEVEL 8.4 MG/DL (8.5-10.1); CARBON DIOXIDE LEVEL 28 MEQ/L (21-32); CHLORIDE LEVEL 101 MEQ/L (98-107); CK-MB VALUE MASS 16.7 NG/ML (<3.6); CPK CREATINE PHOSPHOKINASE 6755 U/L (39-308); ETHYL ALCOHOL (ETHANOL) < 0.003 % (0.000-0.010); GLOMERULAR FILTRATION RATE > 60.0 (>60); GLUCOSE, FASTING 142 MG/DL (70-100); MB/CK RELATIVE INDEX 0.25 (< OR =4); POTASSIUM SERUM 3.2 MEQ/L (3.5-5.1); SALICYLATE LEVEL < 1.7 MG/DL (5.0-30.0); SODIUM LEVEL 137 MEQ/L (136-145); TOTAL PROTEIN 7.5 GM/DL (6.4-8.2); TROPONIN I 0.05 NG/ML (< 0.10)
[2020-04-05] MEDS ORDERED: HALOPERIDOL 5MG/ML VIAL (J1630 PER 1) IV PRN (09:15)
[2020-04-05] MEDS ORDERED: HALOPERIDOL 5MG/ML VIAL (J1630 PER 1) IM STA (09:48)
[2020-04-05] MEDS ORDERED: LORazepam 2 MG/ML VIAL (J2060) IM STA (09:49)
[2020-04-05] MEDS ORDERED: diphenhydrAMINE 50MG/ML VIAL (J1200) As Ordered ONE (10:21)
[2020-04-05] MEDS ORDERED: diphenhydrAMINE 50MG/ML VIAL (J1200) IV PRN (10:30)
[2020-04-05 11:12] VITALS: BP 110/58
[2020-04-05] MEDS: NS 1,000 ML IV SCH ×2 (11:24→21:12)
[2020-04-05 14:00] VITALS: BP 100/56
--- NOTE | 2020-04-05 15:09 | HPEPDOC ---
General Date of Admission 04/05/20 Date of Service: April 05, 2020 Chief Complaint The patient is a 39-year-old male admitted with a reason for visit of Drug Abuse. History of Present Illness 39 year old male with polysubstance abuse, hepatitis B and hepatitis C presented to the ED after abuse of Amanda in an anxious and agitated state. Very talkative, unable to sit still oriented to person and place but with features of psychosis. He goes on about some paperwork which he had with him when he came and was talking about his sister. He was found to have rhabdomyolysis and abnormal LFTs. He was admitted to hospitalist service for Rhabdomyolysis and transaminitis. While in the ED he was getting very agitated and pulling out his IV trying to walk out of the room pacing, murmuring and very psychotic so was given Haldol 2 mg IV. To this he had what looks like an adverse reaction acute dystonic reaction, he was very diaphoretic with jerking movements of yonathan body and limbs which he was unable to control. He was asking us to stop them from moving. He got ativan 2 mg after which he fell asleep and his abnormal movements stopped. 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 Dyspnea, Lt Headedness Gastrointestinal: Denies: Nausea, Vomiting, Abdominal Pain, Diarrhea Genitourinary: Denies: Dysuria, Frequency, Incontinence, Retention Hematologic: Denies: Bruising, Bleeding Excessively Neurological: Denies: Weakness, Numbness, Change in speech, Confusion Psych: Reports: Anxiety, Other Psych (psychosis, agitation) Physical Examination General Exam: Positive: Alert, Cooperative, Other (pacing, talking constantsly) ENT Exam: Positive: Atraumatic, Mucous membr. moist/pink, Pharynx Normal Neck Exam: Positive: Supple; Negative: JVD, thyromegaly Chest Exam: Positive: Clear to auscultation, Normal air movement Heart Exam: Positive: Tachycardic, Bradycardic, Regular Rhythm, Normal S1, Normal S2; Negative: Gallops, Murmurs, Rubs Telemetry: Positive: No significant arrhythmia Abdomen Exam: Positive: Normal bowel sounds, Soft; Negative: Tenderness, Hepatospenomegaly Extremity Exam: Positive: Normal pulses; Negative: Clubbing, Cyanosis, Edema Skin Exam: Positive: Nl turgor and temperature Neuro Exam: Positive: Normal Gait, Strength at 5/5 X4 ext, Normal Tone Psych Exam: Positive: Anxiety, Memory Intact, Other (agitation, oriented to place and person) Vital Signs Vital Signs Date Time Temp Pulse Resp B/P (MAP) Pulse Ox O2 Delivery O2 Flow Rate FiO2 04/05/20 07:31 127 20 163/92 (115) 96 Room Air 04/05/20 06:01 99.0 Laboratory Data Labs 24H Laboratory Tests 2 04/05/20 06:30: Myoglobin 800H 04/05/20 06:31: Immature Granulocyte % (Auto) 0.2, Neutrophils (%) (Auto) 65.6, Lymphocytes (%) (Auto) 18.0L, Monocytes (%) (Auto) 15.5H, Eosinophils (%) (Auto) 0.5, Basophils (%) (Auto) 0.2, Neutrophils # (Auto) 6.4, Lymphocytes # (Auto) 1.8, Monocytes # (Auto) 1.5H, Eosinophils # (Auto) 0.1, Basophils # (Auto) 0.0, Nucleated Red Blood Cells % (auto) 0.0, Anion Gap 8, Glomerular Filtration Rate > 60.0, Calcium Level 8.4L, Total Bilirubin 1.2H, Direct Bilirubin 0.5H, Aspartate Amino Transf (AST/SGOT) 341H, Alanine Aminotransferase (ALT/SGPT) 107H, Alkaline Phosp hatase 67, Total Creatine Kinase 6755H, Creatine Kinase MB 16.7H, Creatine Kinase MB Relative Index 0.25, Troponin I 0.05, Total Protein 7.5, Albumin 3.6, Albumin/Globulin Ratio 0.9, Thyroid Stimulating Hormone (TSH) 1.320, Salicylates Level < 1.7L, Acetaminophen Level < 2.0L, Ethyl Alcohol Level < 0.003 CBC/BMP Laboratory Tests 04/05/20 06:31 Assessment/Plan 39 year old male with polysubstance abuse, hepatitis B and hepatitis C presented to the ED after abuse of Amanda in an anxious and agitated state. Very talkative, unable to sit still oriented to person and place but with features of psychosis. He goes on about some paperwork which he had with him when he came and was talking about his sister. He was found to have rhabdomyolysis and abnormal LFTs. He was admitted to hospitalist service for Rhabdomyolysis and transaminitis. Rhabdomyolysis will continue with IVF Psychosis From polysubstace abuse. recreational drug use psychosis will give benadryl / atival prn Cogentin prn if acute dystonia. psych consult after improvement of Rhabdomyolysis if still psychotic. Street Drug interaction with Haldol Vs acute dystonic reaction due to Haldol most likely his street drugs had an interaction with Haldol so had severe diaphoresis and onset of jerky movements with IV haldol. He may have gone into acute withdrawal from his street drugs on administration of Haldol. Discussed with Dr Mancuso from Psychiatry about possibility of Acute dystonic react ion from IV haldol. as per him very unusual as it does not have the first pass metabolism in liver w hen give IV more likely when given po. will given ativan prn. If continues will give cogentin im. Possible withdrawal patient with jerky movements of body and limbs responded to ativan most likely withdrawing from the street drugs that he uses He claims he did not take his subaxone for 1 day thats causing him this jerks. He buys it on the street ativan prn. Transaminitis this is probably due to rhabdomyolysis and chronic hepatitis B and C. will monitor Chronic Hepatitis b and Hepatitis C no acute issues at this point. Plan / VTE VTE Prophylaxis Ordered?: Yes EHSAN LUTZ MD April 05, 2020 08:06
[2020-04-05] MEDS ORDERED: BENZTROPINE MESYLATE 2MG/2ML VIAL IM PRN (17:00)
[2020-04-05] MEDS ORDERED: LORazepam 2 MG/ML VIAL (J2060) As Ordered ONE ×2 (17:45→23:06)
[2020-04-05] MEDS: LORazepam 2 MG/ML VIAL (J2060) IV PRN ×2 (17:49→23:10)
[2020-04-05 17:50] LABS: ALBUMIN 3.1 GM/DL (3.2-5.2); ALT/SGPT 94 U/L (12-78); BLOOD UREA NITROGEN 16 MG/DL (7-18); CALCIUM LEVEL 8.1 MG/DL (8.5-10.1); CARBON DIOXIDE LEVEL 30 MEQ/L (21-32); CHLORIDE LEVEL 104 MEQ/L (98-107); CREATININE FOR GFR 0.63 MG/DL (0.70-1.30); GLOMERULAR FILTRATION RATE > 60.0 (>60); GLUCOSE, FASTING 102 MG/DL (70-100); POTASSIUM SERUM 3.6 MEQ/L (3.5-5.1); SODIUM LEVEL 138 MEQ/L (136-145); TOTAL PROTEIN 6.9 GM/DL (6.4-8.2)
[2020-04-05 19:09] LABS: CPK CREATINE PHOSPHOKINASE 3786 U/L (39-308)
[2020-04-05 22:00] VITALS: BP 119/66
[2020-04-06] MEDS: ACETAMINOPHEN TAB 650MG DOSE (2X325MG) PO PRN ×2 (01:53→22:00)
[2020-04-06] MEDS: NS 1,000 ML IV SCH ×2 (04:50→14:39)
[2020-04-06 06:00] VITALS: BP 115/68
[2020-04-06 06:25] LABS: HEMATOCRIT 38.3 % (42.0-52.0); HEMOGLOBIN 12.5 g/dl (13.5-17.5); MEAN CORPUSCULAR HEMOGLOBIN 28.9 pg (27.0-33.0); MEAN CORPUSCULAR HGB CONC 32.6 g/dl (32.0-36.5); MEAN CORPUSCULAR VOLUME 88.5 fl (80.0-96.0); PLATELET COUNT, AUTOMATED 150 10^3/uL (150-450); RED BLOOD COUNT 4.33 10^6/uL (4.30-6.10); WHITE BLOOD COUNT 5.7 10^3/uL (4.0-10.0)
[2020-04-06 07:00] LABS: ALBUMIN 2.6 GM/DL (3.2-5.2); ALT/SGPT 81 U/L (12-78); BILIRUBIN,TOTAL 0.6 MG/DL (0.2-1.0); BLOOD UREA NITROGEN 15 MG/DL (7-18); CALCIUM LEVEL 7.6 MG/DL (8.5-10.1); CARBON DIOXIDE LEVEL 29 MEQ/L (21-32); CHLORIDE LEVEL 107 MEQ/L (98-107); CREATININE FOR GFR 0.62 MG/DL (0.70-1.30); GLOMERULAR FILTRATION RATE > 60.0 (>60); GLUCOSE, FASTING 102 MG/DL (70-100); POTASSIUM SERUM 3.9 MEQ/L (3.5-5.1); SODIUM LEVEL 141 MEQ/L (136-145); TOTAL PROTEIN 5.8 GM/DL (6.4-8.2)
[2020-04-06 08:18] LABS: CPK CREATINE PHOSPHOKINASE 1771 U/L (39-308)
[2020-04-06] MEDS: ENOXAPARIN 40MG/0.4ML SYRINGE (J1650 PER 10MG) SC SCH (09:18)
[2020-04-06 09:56] LABS: HEPATITIS B CORE ANTIBODY IGM NEGATIVE (NEGATIVE)
[2020-04-06 09:59] LABS: HEPATITIS A ANTIBODY IGM NEGATIVE (NEGATIVE)
[2020-04-06 10:08] LABS: HEPATITIS B SURFACE ANTIGEN POSITIVE (NEGATIVE); HEPATITIS C VIRUS ABY INDEX > 11.0 INDEX (<0.8)
--- NOTE | 2020-04-06 11:44 | IPNPDOC ---
Subjective Date Seen The patient was seen on 04/06/20. Subjective Chief Complaint/HPI No further jerky movements of the body, slept all night did get a dose of ativan last night. Today he says that he wants to go back to [facility] on discharge so that he can get back on his Suboxone. He said he last took subaxone just over a month ago. He asked me if i could prescribe him a few doses to tide him over till he gets an appointment at [facility]. He said that was the only reason that he had come to the hospital to get some prescription for Suboxone. Otherwise he does not offer any complaints. Will ask PFS to see if we can set up an appointment at [facility] for him . Objective Physical Examination General Exam: Positive: Alert, Cooperative, Other (pacing, talking constantsly) ENT Exam: Positive: Atraumatic, Mucous membr. moist/pink, Pharynx Normal Neck Exam: Positive: Supple; Negative: JVD, thyromegaly Chest Exam: Positive: Clear to auscultation, Normal air movement Heart Exam: Positive: Tachycardic, Bradycardic, Regular Rhythm, Normal S1, Normal S2; Negative: Gallops, Murmurs, Rubs Telemetry: Positive: No significant arrhythmia Abdomen Exam: Positive: Normal bowel sounds, Soft; Negative: Tenderness, Hepatospenomegaly Extremity Exam: Positive: Normal pulses; Negative: Clubbing, Cyanosis, Edema Skin Exam: Positive: Nl turgor and temperature Neuro Exam: Positive: Normal Gait, Strength at 5/5 X4 ext, Normal Tone Psych Exam: Positive: Anxiety, Memory Intact, Other (agitation, oriented to place and person) Assessment /Plan Assessment 39 year old male with polysubstance abuse, hepatitis B and hepatitis C presented to the ED after abuse of Valery in an anxious and agitated state. Very talkative, unable to sit still oriented to person and place but with features of psychosis. He goes on about some paperwork which he had with him when he came and was talking about his sister. He was found to have rhabdomyolysis and abnormal LFTs. He was admitted to hospitalist service for Rhabdomyolysis and transaminitis. Rhabdomyolysis improving will continue with IVF Psychosis improved From polysubstace abuse. recreational drug use psychosis will give ativan prn Cogentin prn if acute dystonia. sitter Polysubstance abuse wants to go back on his Suboxone will refer to [facility] upon discharge. Street Drug interaction with Haldol Vs acute dystonic reaction due to Haldol most likely his street drugs had an interaction with Haldol so had severe diaphoresis and onset of jerky movements with IV haldol. He may have gone into acute withdrawal from his street drugs on administration of Haldol. Seems to mostly have resolved now. Discussed with Dr Mancuso from Psychiatry about possibility of Acute dystonic reaction from IV haldol. as per him very unusual as it does not have the first pass metabolism in liver when give IV more likely when given po. will given ativan prn Possible withdrawal patient with jerky movements of body and limbs responded to ativan most likely withdrawing from the street drugs that he uses He claims he did not take his subaxone for 1 day thats causing him this jerks. He buys it on the street, used to go to [facility] more than a month ago. ativan prn. Transaminitis this is probably due to rhabdomyolysis and chronic hepatitis B and C. improving Chronic Hepatitis b and Hepatitis C no acute issues at this point. Plan/VTE VTE Prophylaxis Ordered?: Yes VS, I&O, 24H, Fishbone Vital Signs/I&O Vital Signs Date Time Temp Pulse Resp B/P (MAP) Pulse Ox O2 Delivery O2 Flow Rate FiO2 04/06/20 06:00 97.0 64 17 115/68 (84) 96 Room Air 04/05/20 10:45 2.0 I&O- Last 24 Hours up to 6 AM 04/06/20 06:00 Intake Total 4860 ml Output Total 0 ml Balance 4860 ml Laboratory Data 24H LABS Laboratory Tests 2 04/05/20 16:58: Anion Gap 4L, Glomerular Filtration Rate > 60.0, Calcium Level 8.1L, Total Bilirubin 2.0#H, Aspartate Amino Transf (AST/SGOT) 258H, Alanine Aminotransferase (ALT/SGPT) 94H, Alkaline Phosphatase 54, Total Creatine Kinase 3786H, Total Protein 6.9, Albumin 3.1L, Albumin/Globulin Ratio 0.8 04/06/20 05:21: Anion Gap 5L, Glomerular Filtration Rate > 60.0, Calcium Level 7.6L, Total Bilirubin 0.6#, Aspartate Amino Transf (AST/SGOT) 172H, Alanine Aminotransferase (ALT/SGPT) 81H, Alkaline Phosphatase 55, Total Creatine Kinase 1771H, Total Protein 5.8L, Albumin 2.6L, Albumin/Globulin Ratio 0.8, Nucleated Red Blood Cells % (auto) 0.0 CBC/BMP Laboratory Tests 04/05/20 16:58 04/06/20 05:21 EHSAN LUTZ MD April 06, 2020 11:44
[2020-04-06 14:00] VITALS: BP 117/66
[2020-04-06] MEDS: MAGIC MOUTHWASH SUSPENSION BTL SSP SCH (17:45)
[2020-04-06 22:00] VITALS: BP 130/75
[2020-04-07] MEDS ORDERED: IBUPROFEN 800 MG TAB PO PRN (01:15)
[2020-04-07] MEDS: NS 1,000 ML IV SCH (01:41)
[2020-04-07 06:00] VITALS: BP 141/82
[2020-04-07] MEDS: MAGIC MOUTHWASH SUSPENSION BTL SSP SCH (07:38)
--- NOTE | 2020-04-07 08:25 | REP ---
LEFT GREAT TOE SERIES: Four views. HISTORY: Swelling and pain. FINDINGS: Four views of the left great toe demonstrate normal bones, joints, and soft tissues. No fracture or subluxation is seen. There is minimal osteophytic lipping at the 1st MTP joint. IMPRESSION: No acute bony abnormality. Minimal spurring at the 1st MTP joint. Electronically Signed by Og Duran MD 04/07/2020 08:31 A
[2020-04-07] MEDS: ENOXAPARIN 40MG/0.4ML SYRINGE (J1650 PER 10MG) SC SCH (08:40)
--- NOTE | 2020-04-07 17:15 | DS.PDOC ---
Discharge Summary General Date of Admission April 05, 2020 at 09:14 Date of Discharge 04/07/20 Discharge Summary PROCEDURES PERFORMED DURING STAY: [None]. 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 HISTORY OF PRESENT ILLNESS: See history and physical HOSPITAL COURSE: 39 year old male with polysubstance abuse, hepatitis B and hepatitis C presented to the ED after abuse of Valery in an anxious and agitated state. Very talkative, unable to sit still oriented to person and place but with features of psychosis. He goes on about some paperwork which he had with him when he came and was talking about his sister. He was found to have rhabdomyo lysis and abnormal LFTs. He was admitted to hospitalist service for Rhabdomyolysis and transaminitis. Rhabdomyolysis resolved. Recreational drug use psychosis improved From polysubstace abuse. Polysubstance abuse wants to go back on his Suboxone will refer to [address] Drug interaction with Haldol Vs acute dystonic reaction due to Haldol most likely his street drugs had an interaction with Haldol so had severe diaphoresis and onset of jerky movements with IV haldol. He may have gone into acute withdrawal from his street drugs on administration of Haldol. resolved now. Possible withdrawal patient with jerky movements of body and limbs responded to ativan most likely withdrawing from the street drugs that he uses He claims he did not take his subaxone for 1 day thats causing him this jerks. He buys it on the street, used to go to [employer] [place] more than a month ago. recieved ativan prn with good response. Transaminitis this is probably due to rhabdomyolysis and chronic hepatitis B and C. improving Chronic Hepatitis b and Hepatitis C no acute issues at this point. DISCHARGE MEDICATIONS: Please see below. ALLERGIES: Please see below. PHYSICAL EXAMINATION ON DISCHARGE: VITAL SIGNS: Please see below. General Exam: Positive: Alert, Cooperative, calm and quiet. ENT Exam: Positive: Atraumatic, Mucous membr. moist/pink, Pharynx Normal Neck Exam: Positive: Supple; Negative: JVD, thyromegaly Chest Exam: Positive: Clear to auscultation, Normal air movement Heart Exam: Positive: Tachycardic, Bradycardic, Regular Rhythm, Normal S1, Normal S2; Negative: Gallops, Murmurs, Rubs Telemetry: Positive: No significant arrhythmia Abdomen Exam: Positive: Normal bowel sounds, Soft; Negative: Tenderness, Hepatospenomegaly Extremity Exam: Positive: Normal pulses; Negative: Clubbing, Cyanosis, Edema Skin Exam: Positive: Nl turgor and temperature Neuro Exam: Positive: Normal Gait, Strength at 5/5 X4 ext, Normal Tone Psych Exam: Positive: Memory Intact LABORATORY DATA: Please see below. ACTIVITY: [As tolerated]. DIET: Regular DISPOSITION: 01 Home, Self-Care. DISCHARGE INSTRUCTIONS: Follow up at [facility] [place]. DISCHARGE CONDITION: [Stable]. TIME SPENT ON DISCHARGE: 35 minutes. Vital Signs/I&Os Vital Signs Date Time Temp Pulse Resp B/P (MAP) Pulse Ox O2 Delivery O2 Flow Rate FiO2 04/07/20 06:00 96.8 82 17 141/82 (101) 99 Room Air 04/05/20 10:45 2.0 I&O- Last 24 Hours up to 6 AM 04/07/20 07:00 Intake Total 5635 ml Output Total 1000 ml Balance 4635 ml Laboratory Data Labs 24H Laboratory Tests 2 04/07/20 05:29: Total Creatine Kinase 640H Discharge Medications Unable to Obtain Active Prescriptions or Reported Meds Allergies Coded Allergies: No Known Allergies (Unverified , 02/11/19) EHSAN LUTZ MD April 07, 2020 17:15
== END 2020-04-07 09:24 | disposition home or self-care (01) | DRG 351 ==
LOC: M ED 05:52 → M ED INP 09:14 → ENRESERV 09:32 → M MSPAV 11:04
PROVIDERS: ADMIT Internal Medicine Nephrology; ATTEND Internal Medicine Nephrology
DX: M62.82 Rhabdomyolysis (principal); B18.1 Chronic viral hepatitis B without delta-agent; B18.2 Chronic viral hepatitis C; F11.10 Opioid abuse, uncomplicated; R74.0 Nonspecific elevation of levels of transaminase and lactic acid dehydrogenase [LDH]; F29 Unspecified psychosis not due to a substance or known physiological condition

== ENCOUNTER 2020-05-08 22:40 | Emergency (ER) | payer MEDICAID ==
[~2020-05-08] VITALS: Ht 175.3 cm; Wt 85.2 kg
[2020-05-08] MEDS ORDERED: NS 1,000 ML IV ONE (22:45)
[2020-05-08] MEDS ORDERED: LORazepam 2 MG/ML VIAL IV STA ×2 (22:45→23:09)
[2020-05-08] MEDS ORDERED: LORazepam 2 MG/ML VIAL As Ordered ONE (22:47)
[2020-05-08 23:08] LABS: BASO % 0.2 % (0.0-1.0); EOS % 0.4 % (0.0-3.0); HEMATOCRIT 46.1 % (42.0-52.0); HEMOGLOBIN 14.7 g/dl (13.5-17.5); LYMPH % 20.1 % (24.0-44.0); MEAN CORPUSCULAR HEMOGLOBIN 28.1 pg (27.0-33.0); MEAN CORPUSCULAR HGB CONC 31.9 g/dl (32.0-36.5); MEAN CORPUSCULAR VOLUME 88.1 fl (80.0-96.0); MONO # 1.2 10^3/uL (0.0-0.8); MONO % 11.7 % (0.0-5.0); NEUTROPHILS # 6.8 10^3/uL (1.5-8.5); NEUTROPHILS % 67.3 % (36.0-66.0); PLATELET COUNT, AUTOMATED 253 10^3/uL (150-450); RED BLOOD COUNT 5.23 10^6/uL (4.30-6.10); WHITE BLOOD COUNT 10.1 10^3/uL (4.0-10.0)
[2020-05-08 23:46] LABS: ACETAMINOPHEN LEVEL < 2.0 UG/ML (10.0-30.0); ALBUMIN 4.2 GM/DL (3.2-5.2); ALT/SGPT 70 U/L (12-78); BILIRUBIN,DIRECT 0.2 MG/DL (0.0-0.2); BILIRUBIN,TOTAL 0.6 MG/DL (0.2-1.0); BLOOD UREA NITROGEN 17 MG/DL (7-18); CALCIUM LEVEL 9.8 MG/DL (8.5-10.1); CARBON DIOXIDE LEVEL 24 MEQ/L (21-32); CHLORIDE LEVEL 104 MEQ/L (98-107); CPK CREATINE PHOSPHOKINASE 104 U/L (39-308); CREATININE FOR GFR 1.35 MG/DL (0.70-1.30); ETHYL ALCOHOL (ETHANOL) < 0.003 % (0.000-0.010); GLOMERULAR FILTRATION RATE > 60.0 (>60); GLUCOSE, FASTING 207 MG/DL (70-100); POTASSIUM SERUM 3.8 MEQ/L (3.5-5.1); SALICYLATE LEVEL 1.9 MG/DL (5.0-30.0); SODIUM LEVEL 137 MEQ/L (136-145); TOTAL PROTEIN 8.9 GM/DL (6.4-8.2)
[2020-05-09 07:20] VITALS: BP 119/75
--- NOTE | 2020-05-09 16:13 | ECGEPIP ---
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
--- NOTE | 2020-05-11 00:27 | ECGEPIP ---
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
== END 2020-05-09 07:22 | disposition home or self-care (01) ==
LOC: M ED 22:40
DX: F19.10 Other psychoactive substance abuse, uncomplicated (principal); R00.0 Tachycardia, unspecified; Z72.0 Tobacco use
CPT/HCPCS: 80048; 80076; 82550; 84443; 85025; 93005; 93041; 94760; 96361; 96374; 96376; 99285; G0480; J2060

== ENCOUNTER 2021-05-20 16:04 | Emergency (ER) | payer MEDICAID ==
[~2021-05-20] VITALS: Ht 177.8 cm; Wt 99.0 kg
[2021-05-20] MEDS ORDERED: KETO2CR TOP (19:13)
[2021-05-20 19:21] VITALS: BP 138/89
== END 2021-05-20 19:22 | disposition home or self-care (01) ==
LOC: M ED 16:04
DX: L30.4 Erythema intertrigo (principal); K64.9 Unspecified hemorrhoids; R51.9 Headache, unspecified; K60.2 Anal fissure, unspecified; Z86.19 Personal history of other infectious and parasitic diseases; M54.9 Dorsalgia, unspecified; F17.200 Nicotine dependence, unspecified, uncomplicated; F19.10 Other psychoactive substance abuse, uncomplicated; F41.9 Anxiety disorder, unspecified

== ENCOUNTER 2022-08-28 16:19 | Emergency (ER) | payer OTHER ==
[~2022-08-28] VITALS: Ht 177.8 cm; Wt 100.0 kg
[~2022-08-28 16:19] MED LIST changes: +KETO2CR TOP
[2022-08-28] MEDS ORDERED: NALOXONE 2MG/2ML SYRINGE (J2310 PER 1MG) IV ONE (16:35)
[2022-08-28 17:19] LABS: BASO % 0.3 % (0.0-1.0); EOS # 0.2 10^3/uL (0.0-0.5); EOS % 2.5 % (0.0-3.0); HEMATOCRIT 43.9 % (42.0-52.0); HEMOGLOBIN 13.6 g/dl (13.5-17.5); LYMPH # 2.2 10^3/uL (1.5-5.0); LYMPH % 34.4 % (24.0-44.0); MEAN CORPUSCULAR VOLUME 87.3 fl (80.0-96.0); MONO # 0.8 10^3/uL (0.0-0.8); MONO % 11.6 % (2.0-8.0); NEUTROPHILS # 3.3 10^3/uL (1.5-8.5); PLATELET COUNT, AUTOMATED 118 10^3/uL (150-450); RED BLOOD COUNT 5.03 10^6/uL (4.30-6.10); WHITE BLOOD COUNT 6.5 10^3/uL (4.0-10.0)
[2022-08-28 17:43] LABS: OSMOLALITY SERUM 293 MOSM/KG (275-295)
[2022-08-28 18:05] LABS: ACETAMINOPHEN LEVEL < 2.0 UG/ML (10.0-30.0); ALBUMIN 3.6 GM/DL (3.2-5.2); ALT/SGPT 85 U/L (12-78); BILIRUBIN,DIRECT 0.3 MG/DL (0.0-0.2); BILIRUBIN,TOTAL 0.5 MG/DL (0.2-1.0); BLOOD UREA NITROGEN 15 MG/DL (7-18); CALCIUM LEVEL 8.9 MG/DL (8.5-10.1); CARBON DIOXIDE LEVEL 27 MEQ/L (21-32); CHLORIDE LEVEL 105 MEQ/L (98-107); CREATININE FOR GFR 0.73 MG/DL (0.70-1.30); ETHYL ALCOHOL (ETHANOL) < 0.003 % (0.000-0.010); GLOMERULAR FILTRATION RATE > 60.0 (>60); GLUCOSE, FASTING 118 MG/DL (70-100); POTASSIUM SERUM 4.2 MEQ/L (3.5-5.1); SALICYLATE LEVEL < 1.7 MG/DL (5.0-30.0); SODIUM LEVEL 139 MEQ/L (136-145); THYROID STIMULATING HORMONE 0.947 uIU/ML (0.358-3.740); TOTAL PROTEIN 8.5 GM/DL (6.4-8.2)
[2022-08-28 19:12] LABS: AMPHETAMINES LEVEL URINE POSITIVE (NEGATIVE); BARBITURATES URINE NEGATIVE (NEGATIVE); BENZODIAZEPINES URINE NEGATIVE (NEGATIVE); CANNABINOIDS URINE POSITIVE (NEGATIVE); COCAINE METABOLITE URINE NEGATIVE (NEGATIVE); METHADONE URINE NEGATIVE (NEGATIVE); OPIATES URINE POSITIVE (NEGATIVE); PHENCYCLIDINE URINE NEGATIVE (NEGATIVE)
[2022-08-28 22:00] VITALS: BP 138/75
[2022-08-28] MEDS ORDERED: KETOROLAC 30 MG/ML 1ML VIAL IV ONE (22:00)
== END 2022-08-28 22:29 | disposition home or self-care (01) ==
LOC: M ED 16:19
DX: T40.1X2A Poisoning by heroin, intentional self-harm, initial encounter (principal); T43.641A Poisoning by ecstasy, accidental (unintentional), initial encounter; Z86.19 Personal history of other infectious and parasitic diseases; Z79.899 Other long term (current) drug therapy
CPT/HCPCS: 36415; 71045; 74018; 80048; 80076; 80143; 80307; 82077; 82550; 83930; 84443; 85025; 93005; 93041; 94760; 96374; 96375; 99285; J1885; J2310

== ENCOUNTER 2023-02-18 17:04 | Inpatient (IN) | payer MEDICAID, OTHER ==
[~2023-02-18] VITALS: Ht 175.3 cm; Wt 105.0 kg
[2023-02-18] MEDS ORDERED: BOOSTRIX/ADACEL VACCINE (DIPHTH/PERTUSS/ACELL/TETANUS) 0.5ML SYR IM.IMMUN ONE (17:45)
[2023-02-18 17:59] LABS: HEMATOCRIT 37.2 % (42.0-52.0); HEMOGLOBIN 11.8 g/dl (13.5-17.5); MEAN CORPUSCULAR HEMOGLOBIN 28.2 pg (27.0-33.0); MEAN CORPUSCULAR HGB CONC 31.7 g/dl (32.0-36.5); PLATELET COUNT, AUTOMATED 205 10^3/uL (150-450); RED BLOOD COUNT 4.18 10^6/uL (4.30-6.10); WHITE BLOOD COUNT 8.8 10^3/uL (4.0-10.0)
[2023-02-18] MEDS ORDERED: ceFAZolin SOD 1 GM in D5W MINI-BAG PLUS 50 ML IV ONE (18:00)
[2023-02-18 18:27] LABS: BLOOD UREA NITROGEN 9 MG/DL (9-23); CALCIUM LEVEL 8.6 MG/DL (8.5-10.1); CARBON DIOXIDE LEVEL 31 MMOL/L (20-31); CHLORIDE LEVEL 101 MMOL/L (98-107); CREATININE FOR GFR 0.54 MG/DL (0.70-1.30); GLOMERULAR FILTRATION RATE > 60.0 (>60); GLUCOSE, FASTING 153 MG/DL (60-100); POTASSIUM SERUM 4.9 MMOL/L (3.5-5.1); SODIUM LEVEL 138 MMOL/L (136-145)
[2023-02-18] MEDS ORDERED: HOME MED LIST COMPLETE! XX SCH (18:55)
[2023-02-18 18:59] LABS: RSV AMPLIFICATION NEGATIVE (NEGATIVE)
[2023-02-18 19:11] LABS: ERYTHROCYTE SEDIMENTATION RATE 42 mm/hr (0-15)
[2023-02-18 23:00] VITALS: BP 142/71
[2023-02-18] MEDS ORDERED: MORPHINE 2 MG/ML 1ML VIAL IV ONE (23:00)
[2023-02-18] MEDS: VANCOMYCIN HCL 1,000 MG, VIAL MATE ADAPTER 1 EACH in NS 250 ML IV SCH (23:06)
[2023-02-18] MEDS ORDERED: LORazepam 2 MG TAB PO PRN (23:15)
[2023-02-18 23:16] VITALS: BP 142/71
[2023-02-19] MEDS ORDERED: VANCOMYCIN HCL 1,000 MG, VIAL MATE ADAPTER 1 EACH in NS 250 ML IV ONE ×3
[2023-02-19] MEDS: THIAMINE 100 MG TAB PO SCH ×3 (00:11→21:00)
[2023-02-19 05:40] VITALS: BP 127/59
[2023-02-19 05:56] LABS: HEMATOCRIT 33.2 % (42.0-52.0); HEMOGLOBIN 10.7 g/dl (13.5-17.5); MEAN CORPUSCULAR HEMOGLOBIN 28.6 pg (27.0-33.0); MEAN CORPUSCULAR HGB CONC 32.2 g/dl (32.0-36.5); MEAN CORPUSCULAR VOLUME 88.8 fl (80.0-96.0); PLATELET COUNT, AUTOMATED 133 10^3/uL (150-450); RED BLOOD COUNT 3.74 10^6/uL (4.30-6.10); WHITE BLOOD COUNT 6.5 10^3/uL (4.0-10.0)
[2023-02-19] MEDS: HEPARIN SOD (PORCINE) 5000UNITS/ML 1ML VIAL/SYRINGE SC SCH ×4 (06:00→20:46)
[2023-02-19] MEDS: VANCOMYCIN HCL 1,000 MG, VIAL MATE ADAPTER 1 EACH in NS 250 ML IV SCH ×3 (06:02→23:49)
[2023-02-19 06:16] LABS: ALBUMIN 2.4 G/DL (3.2-5.2); ALKALINE PHOSPHATASE 69 U/L (46-116); ALT/SGPT 64 U/L (7.0-40); AST/SGOT 97 U/L (<34); BILIRUBIN,TOTAL 0.6 MG/DL (0.3-1.2); BLOOD UREA NITROGEN 7 MG/DL (9-23); CALCIUM LEVEL 8.2 MG/DL (8.5-10.1); CARBON DIOXIDE LEVEL 31 MMOL/L (20-31); CHLORIDE LEVEL 105 MMOL/L (98-107); GLOMERULAR FILTRATION RATE > 60.0 (>60); GLUCOSE, FASTING 154 MG/DL (60-100); POTASSIUM SERUM 3.2 MMOL/L (3.5-5.1); SODIUM LEVEL 141 MMOL/L (136-145); TOTAL PROTEIN 6.1 G/DL (5.7-8.2)
[2023-02-19] MEDS ORDERED: MORPHINE 2 MG/ML 1ML VIAL IV ONE (07:00)
[2023-02-19] MEDS: FOLIC ACID 1MG TAB PO SCH (09:41)
[2023-02-19] MEDS: MULTIVITAMINS/MINERALS THERAP 1 TAB PO SCH (09:41)
[2023-02-19 14:00] VITALS: BP 125/64
[2023-02-19] MEDS ORDERED: POTASSIUM CHLORIDE 10MEQ SR TABLET PO ONE (14:35)
[2023-02-19 15:09] LABS: VANCOMYCIN LEVEL TROUGH 8.4 UG/ML (10.0-20.0)
[2023-02-19 15:30] LABS: IRON (FE) 25 UG/DL (65-175); PERCENT SATURATION 11.7 % (19.7-50.0); TOTAL IRON BINDING CAPACITY 214 UG/DL (250-425)
[2023-02-19 15:33] LABS: FERRITIN 130.3 NG/ML (10.5-307.3); FOLATE 19.14 NG/ML (>5.4); VITAMIN B12 LEVEL 521 PG/ML (211-911)
[2023-02-19 15:50] LABS: HEPATITIS B SURFACE ANTIGEN NEGATIVE (NEGATIVE)
[2023-02-19 16:11] LABS: HEPATITIS B CORE ANTIBODY IGM NEGATIVE (NEGATIVE); HEPATITIS C VIRUS ABY INDEX > 11.0 INDEX (<0.8)
[2023-02-19] MEDS ORDERED: PERCOCET 5MG/325MG TAB PO PRN (18:15)
[2023-02-19] MEDS: PERCOCET 5MG/325MG TAB PO PRN (18:41)
[2023-02-19] MEDS: PIPERACILLIN/TAZOBACTAM SOD 3.375 GM in D5W MINI-BAG PLUS 50 ML IV SCH (19:28)
[2023-02-19 19:52] VITALS: BP 124/63
[2023-02-19] MEDS ORDERED: LIDOCAINE 1% SDV 30ML VIAL As Ordered ONE (21:54)
[2023-02-19] MEDS ORDERED: BUPIVACAINE HCL 0.5% 30ML VIAL As Ordered ONE (21:54)
[2023-02-19] MEDS ORDERED: LIDOCAINE 2% 100MG/5ML SDV (FOR ANES.) As Ordered ONE (22:00)
[2023-02-19] MEDS ORDERED: propofoL 200 MG/20 ML VIAL As Ordered ONE (22:00)
[2023-02-19] MEDS ORDERED: MIDAZOLAM INJ 2MG/2ML VIAL As Ordered ONE (22:01)
[2023-02-19] MEDS ORDERED: fentaNYL 100 MCG/2 ML INJECTION As Ordered ONE (22:01)
[2023-02-19] MEDS ORDERED: KETOROLAC 60MG 2ML VIAL As Ordered ONE (22:42)
[2023-02-19] MEDS ORDERED: HYDROMORPHONE HCL 0.5 MG/ 0.5 ML SYRINGE IV PRN (23:10)
[2023-02-19] MEDS ORDERED: ONDANSETRON 4MG 2ML VIAL IV PRN (23:10)
[2023-02-19] MEDS ORDERED: fentaNYL 100 MCG/2 ML INJECTION IV PRN (23:10)
[2023-02-19] MEDS ORDERED: LR 1,000 ML IV SCH (23:10)
[2023-02-19 23:51] VITALS: BP 109/68
[2023-02-20 00:04] VITALS: BP 134/81
[2023-02-20] MEDS: PIPERACILLIN/TAZOBACTAM SOD 3.375 GM in D5W MINI-BAG PLUS 50 ML IV SCH ×4 (01:02→20:14)
[2023-02-20 01:03] VITALS: BP 124/59
[2023-02-20 02:11] VITALS: BP 148/67
[2023-02-20 03:26] VITALS: BP 140/70
[2023-02-20] MEDS: PERCOCET 5MG/325MG TAB PO PRN ×5 (03:30→20:14)
[2023-02-20] MEDS: HEPARIN SOD (PORCINE) 5000UNITS/ML 1ML VIAL/SYRINGE SC SCH ×4 (04:29→22:20)
[2023-02-20] MEDS: VANCOMYCIN HCL 1,000 MG, VIAL MATE ADAPTER 1 EACH in NS 250 ML IV SCH (06:16)
[2023-02-20] MEDS: MORPHINE 2 MG/ML 1ML VIAL IV PRN ×3 (06:16→21:28)
[2023-02-20 06:59] LABS: BASO % 0.4 % (0.0-1.0); EOS # 0.1 10^3/uL (0.0-0.5); EOS % 2.1 % (0.0-3.0); HEMATOCRIT 34.9 % (42.0-52.0); HEMOGLOBIN 10.9 g/dl (13.5-17.5); LYMPH # 2.6 10^3/uL (1.5-5.0); LYMPH % 50.9 % (24.0-44.0); MEAN CORPUSCULAR HEMOGLOBIN 28.4 pg (27.0-33.0); MEAN CORPUSCULAR HGB CONC 31.2 g/dl (32.0-36.5); MEAN CORPUSCULAR VOLUME 90.9 fl (80.0-96.0); MONO # 0.5 10^3/uL (0.0-0.8); MONO % 10.5 % (2.0-8.0); NEUTROPHILS # 1.8 10^3/uL (1.5-8.5); NEUTROPHILS % 35.3 % (36.0-66.0); PLATELET COUNT, AUTOMATED 176 10^3/uL (150-450); RED BLOOD COUNT 3.84 10^6/uL (4.30-6.10); WHITE BLOOD COUNT 5.1 10^3/uL (4.0-10.0)
[2023-02-20 07:17] LABS: BLOOD UREA NITROGEN 5 MG/DL (9-23); CALCIUM LEVEL 7.6 MG/DL (8.5-10.1); CARBON DIOXIDE LEVEL 27 MMOL/L (20-31); CHLORIDE LEVEL 108 MMOL/L (98-107); CREATININE FOR GFR 0.48 MG/DL (0.70-1.30); GLOMERULAR FILTRATION RATE > 60.0 (>60); GLUCOSE, FASTING 177 MG/DL (60-100); MAGNESIUM LEVEL 1.8 MG/DL (1.8-2.4); PHOSPHORUS LEVEL 2.7 MG/DL (2.5-4.9); POTASSIUM SERUM 3.7 MMOL/L (3.5-5.1); SODIUM LEVEL 140 MMOL/L (136-145)
[2023-02-20] MEDS: FOLIC ACID 1MG TAB PO SCH (08:23)
[2023-02-20] MEDS: MULTIVITAMINS/MINERALS THERAP 1 TAB PO SCH (08:23)
[2023-02-20] MEDS: THIAMINE 100 MG TAB PO SCH ×2 (08:23→20:13)
[2023-02-20 14:00] VITALS: BP 180/89
[2023-02-20] MEDS ORDERED: VANCOMYCIN HCL 500 MG in D5W MINI-BAG PLUS 100 ML IV SCH (15:00)
[2023-02-20] MEDS: VANCOMYCIN HCL 750 MG, VIAL MATE ADAPTER 1 EACH in D5W 250 ML IV SCH ×2 (17:09→22:19)
[2023-02-20] MEDS: VANCOMYCIN HCL 500 MG in D5W MINI-BAG PLUS 100 ML IV SCH ×2 (18:01→23:20)
[2023-02-20 20:19] VITALS: BP 141/82
[2023-02-21] MEDS: PIPERACILLIN/TAZOBACTAM SOD 3.375 GM in D5W MINI-BAG PLUS 50 ML IV SCH ×4 (01:04→20:01)
[2023-02-21] MEDS: PERCOCET 5MG/325MG TAB PO PRN ×5 (01:07→20:02)
[2023-02-21] MEDS: HEPARIN SOD (PORCINE) 5000UNITS/ML 1ML VIAL/SYRINGE SC SCH ×3 (06:00→21:29)
[2023-02-21] MEDS: VANCOMYCIN HCL 750 MG, VIAL MATE ADAPTER 1 EACH in D5W 250 ML IV SCH ×3 (06:26→22:57)
[2023-02-21 06:28] VITALS: BP 133/69
[2023-02-21] MEDS: VANCOMYCIN HCL 500 MG in D5W MINI-BAG PLUS 100 ML IV SCH ×2 (07:53→16:58)
[2023-02-21] MEDS: MORPHINE 2 MG/ML 1ML VIAL IV PRN ×4 (07:54→21:45)
[2023-02-21] MEDS: THIAMINE 100 MG TAB PO SCH (07:55)
[2023-02-21] MEDS: FOLIC ACID 1MG TAB PO SCH (07:55)
[2023-02-21] MEDS: MULTIVITAMINS/MINERALS THERAP 1 TAB PO SCH (07:55)
[2023-02-21 12:36] LABS: ALBUMIN 2.5 G/DL (3.2-5.2); BILIRUBIN,DIRECT 0.6 MG/DL (<0.4); BILIRUBIN,TOTAL 0.9 MG/DL (0.3-1.2); TOTAL PROTEIN 7.4 G/DL (5.7-8.2)
[2023-02-21] MEDS ORDERED: ISOVUE-370 76% 100ML VIAL As Ordered ONE (13:55)
[2023-02-21] MEDS: FERROUS SULFATE 325MG TAB PO SCH (14:12)
[2023-02-21 14:37] LABS: VANCOMYCIN LEVEL TROUGH 11.1 UG/ML (10.0-20.0)
[2023-02-21 15:28] LABS: BLOOD UREA NITROGEN 5 MG/DL (9-23); CALCIUM LEVEL 8.5 MG/DL (8.5-10.1); CARBON DIOXIDE LEVEL 26 MMOL/L (20-31); CHLORIDE LEVEL 102 MMOL/L (98-107); CREATININE FOR GFR 0.57 MG/DL (0.70-1.30); GLOMERULAR FILTRATION RATE > 60.0 (>60); GLUCOSE, FASTING 139 MG/DL (60-100); POTASSIUM SERUM 4.7 MMOL/L (3.5-5.1); SODIUM LEVEL 135 MMOL/L (136-145)
[2023-02-21 22:00] VITALS: BP 130/72
[2023-02-21] MEDS ORDERED: LORazepam 2 MG/ML 1ML VIAL IV ONE (22:15)
[2023-02-22] MEDS: VANCOMYCIN HCL 500 MG in D5W MINI-BAG PLUS 100 ML IV SCH ×2 (00:49→08:31)
[2023-02-22] MEDS: PERCOCET 5MG/325MG TAB PO PRN ×3 (00:50→10:26)
[2023-02-22 02:00] VITALS: BP 128/77
[2023-02-22] MEDS: MORPHINE 2 MG/ML 1ML VIAL IV PRN (02:24)
[2023-02-22] MEDS: PIPERACILLIN/TAZOBACTAM SOD 3.375 GM in D5W MINI-BAG PLUS 50 ML IV SCH ×2 (02:24→10:26)
[2023-02-22 06:00] VITALS: BP 128/75
[2023-02-22] MEDS: HEPARIN SOD (PORCINE) 5000UNITS/ML 1ML VIAL/SYRINGE SC SCH ×2 (06:00→14:00)
[2023-02-22] MEDS: VANCOMYCIN HCL 750 MG, VIAL MATE ADAPTER 1 EACH in D5W 250 ML IV SCH (06:24)
[2023-02-22 06:32] LABS: BASO % 0.3 % (0.0-1.0); EOS # 0.2 10^3/uL (0.0-0.5); EOS % 2.6 % (0.0-3.0); HEMOGLOBIN 11.9 g/dl (13.5-17.5); LYMPH # 2.6 10^3/uL (1.5-5.0); LYMPH % 42.3 % (24.0-44.0); MEAN CORPUSCULAR HGB CONC 31.3 g/dl (32.0-36.5); MEAN CORPUSCULAR VOLUME 89.4 fl (80.0-96.0); MONO # 0.6 10^3/uL (0.0-0.8); NEUTROPHILS # 2.8 10^3/uL (1.5-8.5); NEUTROPHILS % 45.3 % (36.0-66.0); PLATELET COUNT, AUTOMATED 278 10^3/uL (150-450); RED BLOOD COUNT 4.25 10^6/uL (4.30-6.10); WHITE BLOOD COUNT 6.1 10^3/uL (4.0-10.0)
[2023-02-22 07:01] LABS: ALBUMIN 2.5 G/DL (3.2-5.2); ALKALINE PHOSPHATASE 86 U/L (46-116); ALT/SGPT 53 U/L (7.0-40); AST/SGOT 66 U/L (<34); BILIRUBIN,TOTAL 0.6 MG/DL (0.3-1.2); BLOOD UREA NITROGEN 7 MG/DL (9-23); CALCIUM LEVEL 8.5 MG/DL (8.5-10.1); CARBON DIOXIDE LEVEL 28 MMOL/L (20-31); CHLORIDE LEVEL 103 MMOL/L (98-107); CREATININE FOR GFR 0.64 MG/DL (0.70-1.30); GLOMERULAR FILTRATION RATE > 60.0 (>60); GLUCOSE, FASTING 145 MG/DL (60-100); PHOSPHORUS LEVEL 3.9 MG/DL (2.5-4.9); POTASSIUM SERUM 4.2 MMOL/L (3.5-5.1); SODIUM LEVEL 136 MMOL/L (136-145); TOTAL PROTEIN 7.5 G/DL (5.7-8.2)
[2023-02-22 07:58] VITALS: BP 130/78
[2023-02-22] MEDS ORDERED: LORazepam 2 MG/ML 1ML VIAL IV PRN (08:30)
[2023-02-22] MEDS: FOLIC ACID 1MG TAB PO SCH (08:38)
[2023-02-22] MEDS: MULTIVITAMINS/MINERALS THERAP 1 TAB PO SCH (08:38)
[2023-02-22] MEDS: FERROUS SULFATE 325MG TAB PO SCH (08:38)
[2023-02-22] MEDS ORDERED: FOLI1TAB11 PO (14:18)
[2023-02-22] MEDS ORDERED: ZYVO1TAB PO (14:18)
[2023-02-22] MEDS ORDERED: FERR1TAB8 PO (14:18)
[2023-02-22] MEDS ORDERED: PERCOCET PO (14:18)
[2023-02-22] MEDS ORDERED: VITMTA PO (14:23)
[2023-02-22] MEDS ORDERED: THIA100T7 PO (14:23)
[2023-02-22 19:07] LABS: HEPATITIS C QUANTITATION 2220000 IU/mL (.)
[2023-02-22] MEDS ORDERED: LINEZOLID 600MG TABLET (ZYVOX) PO SCH (21:00)
== END 2023-02-22 15:25 | disposition home or self-care (01) | DRG 383 ==
LOC: M ED 17:04 → M ED INP 20:17 → EEVIPCON 20:17 → M MS5PR 22:45
PROVIDERS: ADMIT Family Medicine; ATTEND Internal Medicine
PROC: 0H9MXZZ Drainage of Right Foot Skin, External Approach (ICD-10-PCS; principal; 2023-02-19 20:00)
DX: L03.115 Cellulitis of right lower limb (principal); F11.10 Opioid abuse, uncomplicated; G62.9 Polyneuropathy, unspecified; E87.6 Hypokalemia; D50.9 Iron deficiency anemia, unspecified; L08.9 Local infection of the skin and subcutaneous tissue, unspecified; B18.2 Chronic viral hepatitis C; S91.331A Puncture wound without foreign body, right foot, initial encounter; F10.10 Alcohol abuse, uncomplicated; K21.9 Gastro-esophageal reflux disease without esophagitis; R31.9 Hematuria, unspecified; R01.1 Cardiac murmur, unspecified; R74.01 Elevation of levels of liver transaminase levels; M43.10 Spondylolisthesis, site unspecified; W25.XXXA Contact with sharp glass, initial encounter; Y92.9 Unspecified place or not applicable

== ENCOUNTER 2023-02-25 00:53 | Emergency (ER) | payer MEDICAID, SELFPAY ==
[~2023-02-25] VITALS: Ht 177.8 cm; Wt 102.0 kg
[~2023-02-25 00:53] MED LIST changes: +FERR1TAB8 PO; +FOLI1TAB11 PO; +PERCOCET PO; +THIA100T7 PO; +VITMTA PO; +ZYVO1TAB PO
[2023-02-25] MEDS ORDERED: DALBAVANCIN 1,500 MG in D5W 250 ML IV ONE (05:00)
[2023-02-25] MEDS ORDERED: ONDANSETRON 4MG 2ML VIAL IV ONE (05:00)
[2023-02-25] MEDS ORDERED: NS 1,000 ML IV ONE (05:00)
[2023-02-25] MEDS ORDERED: MORPHINE 4 MG/ML 1ML VIAL IV ONE (05:00)
[2023-02-25 06:46] LABS: BASO % 0.2 % (0.0-1.0); EOS # 0.2 10^3/uL (0.0-0.5); EOS % 1.3 % (0.0-3.0); HEMATOCRIT 36.2 % (42.0-52.0); HEMOGLOBIN 11.7 g/dl (13.5-17.5); LYMPH # 4.2 10^3/uL (1.5-5.0); LYMPH % 35.7 % (24.0-44.0); MEAN CORPUSCULAR HEMOGLOBIN 28.6 pg (27.0-33.0); MEAN CORPUSCULAR HGB CONC 32.3 g/dl (32.0-36.5); MEAN CORPUSCULAR VOLUME 88.5 fl (80.0-96.0); MONO # 1.1 10^3/uL (0.0-0.8); MONO % 9.7 % (2.0-8.0); NEUTROPHILS # 6.1 10^3/uL (1.5-8.5); NEUTROPHILS % 52.8 % (36.0-66.0); PLATELET COUNT, AUTOMATED 322 10^3/uL (150-450); RED BLOOD COUNT 4.09 10^6/uL (4.30-6.10); WHITE BLOOD COUNT 11.6 10^3/uL (4.0-10.0)
[2023-02-25 07:24] LABS: BLOOD UREA NITROGEN 18 MG/DL (9-23); CALCIUM LEVEL 8.4 MG/DL (8.5-10.1); CARBON DIOXIDE LEVEL 26 MMOL/L (20-31); CHLORIDE LEVEL 100 MMOL/L (98-107); CREATININE FOR GFR 0.61 MG/DL (0.70-1.30); GLOMERULAR FILTRATION RATE > 60.0 (>60); GLUCOSE, FASTING 115 MG/DL (60-100); MAGNESIUM LEVEL 1.9 MG/DL (1.8-2.4); SODIUM LEVEL 131 MMOL/L (136-145)
[2023-02-25 09:14] VITALS: BP 124/78; TEMP 97.1; O2SAT 98
== END 2023-02-25 09:21 | disposition home or self-care (01) ==
LOC: M ED 00:53 → EDBD 00:53 → EDSEX 00:53 → M ED 09:21
DX: L03.115 Cellulitis of right lower limb (principal); F11.10 Opioid abuse, uncomplicated; F10.20 Alcohol dependence, uncomplicated; F17.200 Nicotine dependence, unspecified, uncomplicated; Z86.19 Personal history of other infectious and parasitic diseases; Z79.899 Other long term (current) drug therapy
CPT/HCPCS: 80048; 83735; 85025; 96361; 96374; 96375; 99284; J0875; J2405

== ENCOUNTER 2023-12-06 16:10 | Emergency (ER) | payer MEDICAID, SELFPAY ==
[~2023-12-06] VITALS: Ht 177.8 cm; Wt 100.0 kg
[2023-12-06 20:11] LABS: BASO % 0.1 % (0.0-1.0); EOS # 0.1 10^3/uL (0.0-0.5); EOS % 1.2 % (0.0-3.0); HEMATOCRIT 40.7 % (42.0-52.0); HEMOGLOBIN 13.8 g/dl (13.5-17.5); LYMPH # 4.6 10^3/uL (1.5-5.0); LYMPH % 50.3 % (24.0-44.0); MEAN CORPUSCULAR HEMOGLOBIN 28.8 pg (27.0-33.0); MEAN CORPUSCULAR HGB CONC 33.9 g/dl (32.0-36.5); MEAN CORPUSCULAR VOLUME 84.8 fl (80.0-96.0); MONO % 11.1 % (2.0-8.0); NEUTROPHILS # 3.4 10^3/uL (1.5-8.5); NEUTROPHILS % 37.2 % (36.0-66.0); WHITE BLOOD COUNT 9.2 10^3/uL (4.0-10.0)
[2023-12-06 20:35] LABS: ETHYL ALCOHOL (ETHANOL) 0.005 % (0.000-0.010); LIPASE 387 U/L (12-53)
[2023-12-06 20:37] LABS: ALBUMIN 3.5 G/DL (3.2-5.2); ALKALINE PHOSPHATASE 54 U/L (46-116); ALT/SGPT 103 U/L (7.0-40); AST/SGOT 131 U/L (<34); BILIRUBIN,DIRECT 0.7 MG/DL (<0.4); BILIRUBIN,TOTAL 1.5 MG/DL (0.3-1.2); SALICYLATE LEVEL < 3.0 MG/DL (<30); TOTAL PROTEIN 7.5 G/DL (5.7-8.2)
[2023-12-06 20:39] LABS: PLATELET COUNT, AUTOMATED 90 10^3/uL (150-450); THYROID STIMULATING HORMONE 1.091 uIU/ML (0.55-4.78)
[2023-12-06 20:43] LABS: ERYTHROCYTE SEDIMENTATION RATE 25 mm/hr (0-15)
[2023-12-06 20:44] LABS: PROCALCITONIN 0.07 ng/ml
[2023-12-06] MEDS ORDERED: PROHANCE 279.3MG/ML 15ML VIAL As Ordered ONE (22:04)
[2023-12-06] MEDS ORDERED: PROHANCE 279.3MG/ML 5ML VIAL As Ordered ONE (22:04)
[2023-12-07 00:11] LABS: BARBITURATES URINE NEGATIVE (NEGATIVE); BENZODIAZEPINES URINE NEGATIVE (NEGATIVE); COCAINE METABOLITE URINE NEGATIVE (NEGATIVE); METHADONE URINE NEGATIVE (NEGATIVE)
[2023-12-07 00:12] LABS: CANNABINOIDS URINE NEGATIVE (NEGATIVE); OPIATES URINE NEGATIVE (NEGATIVE); PHENCYCLIDINE URINE NEGATIVE (NEGATIVE)
[2023-12-07 00:15] LABS: AMPHETAMINES LEVEL URINE POSITIVE (NEGATIVE)
[2023-12-07 01:00] VITALS: BP 117/67; TEMP 96.7; O2SAT 99
== END 2023-12-07 01:10 | disposition home or self-care (01) ==
LOC: M ED 16:10
DX: M54.50 Low back pain, unspecified (principal); F15.10 Other stimulant abuse, uncomplicated; R74.8 Abnormal levels of other serum enzymes; R74.01 Elevation of levels of liver transaminase levels; I44.4 Left anterior fascicular block; R51.9 Headache, unspecified; B19.20 Unspecified viral hepatitis C without hepatic coma; F17.200 Nicotine dependence, unspecified, uncomplicated; F19.10 Other psychoactive substance abuse, uncomplicated; Z79.899 Other long term (current) drug therapy
CPT/HCPCS: 36415; 70450; 72158; 80047; 80076; 80143; 80307; 82077; 83605; 83690; 84145; 84443; 85025; 85049; 85055; 85652; 86140; 87040; 93005; 99284; A9576

== ENCOUNTER 2024-01-16 11:12 | Emergency (ER) | payer MEDICAID, SELFPAY ==
[~2024-01-16] VITALS: Ht 177.8 cm; Wt 90.7 kg
[2024-01-16] MEDS: methylPREDNISolone 125MG 2ML VIAL IV ONE (14:06)
[2024-01-16] MEDS: METHOCARBAMOL 1,000 MG/10 ML VIAL IV ONE (14:06)
[2024-01-16] MEDS: KETOROLAC 30 MG/ML 1ML VIAL IV ONE (14:06)
[2024-01-16] MEDS: ACETAMINOPHEN *IV* 1,000 MG in IV 1 EA IV ONE (16:47)
[2024-01-16] MEDS ORDERED: METH-1164 PO (19:16)
[2024-01-16] MEDS ORDERED: NAPR-837 PO (19:16)
[2024-01-16] MEDS ORDERED: ACET-897 PO (19:16)
[2024-01-16] MEDS: LIDOCAINE 5% (LIDODERM) PATCH TD ONE (19:23)
[2024-01-16 19:28] VITALS: BP 135/63; TEMP 98.2; O2SAT 98
== END 2024-01-16 19:51 | disposition home or self-care (01) ==
LOC: EDBD 11:12 → M ED 11:12
DX: M54.50 Low back pain, unspecified (principal); M43.26 Fusion of spine, lumbar region; F17.200 Nicotine dependence, unspecified, uncomplicated; F19.10 Other psychoactive substance abuse, uncomplicated; Z86.19 Personal history of other infectious and parasitic diseases; Z79.899 Other long term (current) drug therapy
CPT/HCPCS: 72110; 72148; 80047; 96365; 96375; 99284; J0131; J1885; J2800; J2930

== ENCOUNTER 2024-02-10 14:34 | Emergency (ER) | payer MEDICAID, SELFPAY ==
[~2024-02-10] VITALS: Ht 177.8 cm; Wt 86.3 kg
[~2024-02-10 14:34] MED LIST changes: +ACET-897 PO; +METH-1164 PO; +NAPR-837 PO
[2024-02-10 18:24] LABS: BASO % 0.1 % (0.0-1.0); EOS % 0.3 % (0.0-3.0); HEMATOCRIT 40.4 % (42.0-52.0); LYMPH # 2.1 10^3/uL (1.5-5.0); LYMPH % 21.7 % (24.0-44.0); MEAN CORPUSCULAR HEMOGLOBIN 27.5 pg (27.0-33.0); MEAN CORPUSCULAR HGB CONC 32.2 g/dl (32.0-36.5); MEAN CORPUSCULAR VOLUME 85.6 fl (80.0-96.0); MONO # 0.9 10^3/uL (0.0-0.8); MONO % 8.7 % (2.0-8.0); NEUTROPHILS # 6.7 10^3/uL (1.5-8.5); NEUTROPHILS % 68.7 % (36.0-66.0); PLATELET COUNT, AUTOMATED 357 10^3/uL (150-450); RED BLOOD COUNT 4.72 10^6/uL (4.30-6.10); WHITE BLOOD COUNT 9.8 10^3/uL (4.0-10.0)
[2024-02-10 18:35] LABS: INR 1.2; PARTIAL THROMBOPLASTIN TIME 30.7 SECONDS (24.8-34.2); PROTHROMBIN TIME 14.9 SECONDS (12.5-14.5)
[2024-02-10 18:52] LABS: ALBUMIN 2.1 G/DL (3.2-5.2); ALKALINE PHOSPHATASE 89 U/L (46-116); ALT/SGPT 32 U/L (7.0-40); AMYLASE 56 U/L (30-118); AST/SGOT 39 U/L (<34); BILIRUBIN,DIRECT 0.5 MG/DL (<0.4); BILIRUBIN,TOTAL 0.7 MG/DL (0.3-1.2); BLOOD UREA NITROGEN 10 MG/DL (9-23); CALCIUM LEVEL 8.4 MG/DL (8.5-10.1); CARBON DIOXIDE LEVEL 34 MMOL/L (20-31); CHLORIDE LEVEL 95 MMOL/L (98-107); CREATININE FOR GFR 0.45 MG/DL (0.70-1.30); GLOMERULAR FILTRATION RATE > 60.0 (>60); GLUCOSE, FASTING 96 MG/DL (60-100); POTASSIUM SERUM 3.7 MMOL/L (3.5-5.1); SODIUM LEVEL 131 MMOL/L (136-145); TOTAL PROTEIN 9.1 G/DL (5.7-8.2)
[2024-02-10 19:04] LABS: APPEARANCE, URINE HAZY (CLEAR); BACTERIA, URINE AUTO NEGATIVE (NEGATIVE); BILIRUBIN, URINE AUTO 1+ (NEGATIVE); BLOOD, URINE BLOOD 1+ (NEGATIVE); COLOR, URINE AMBER (YELLOW); GLUCOSE, URINE (UA) AUTO 1+ mg/dL (NEGATIVE); KETONE, URINE AUTO NEGATIVE (NEGATIVE); LEUKOCYTE ESTERASE, URINE AUTO NEGATIVE (NEGATIVE); MUCUS, URINE MODERATE (NEGATIVE); NITRITE, URINE AUTO NEGATIVE (NEGATIVE); PROTEIN, URINE AUTO 1+ mg/dL (NEGATIVE); RBC, URINE AUTO 15 /HPF (0-3); SPECIFIC GRAVITY URINE AUTO 1.024 (1.002-1.035); SQUAMOUS EPITHELIAL CELL UR AU 0 /HPF (0-6); WBC, URINE AUTO 3 /HPF (0-3)
[2024-02-10 19:04] LABS: PROCALCITONIN 0.04 ng/ml
[2024-02-10] MEDS ORDERED: ISOVUE-370 76% 100ML VIAL As Ordered ONE (19:05)
[2024-02-10] MEDS: diazePAM 10MG/2ML SYRINGE IV ONE (19:22)
[2024-02-10] MEDS: KETOROLAC 30 MG/ML 1ML VIAL IV ONE (19:22)
[2024-02-10] MEDS: NS 1,000 ML IV SCH (21:10)
[2024-02-10] MEDS: MORPHINE 4 MG/ML 1ML VIAL IV PRN (21:57)
[2024-02-10 22:18] LABS: RSV AMPLIFICATION NEGATIVE (NEGATIVE)
[2024-02-10 22:39] VITALS: BP 147/86; TEMP 98.3; O2SAT 99
== END 2024-02-10 22:44 | disposition short-term general hospital (02) ==
LOC: EDBD → M ED 14:34
DX: M46.26 Osteomyelitis of vertebra, lumbar region (principal); S33.140A Subluxation of L4/L5 lumbar vertebra, initial encounter; M25.839 Other specified joint disorders, unspecified wrist; M54.50 Low back pain, unspecified; M85.842 Other specified disorders of bone density and structure, left hand; J98.11 Atelectasis; F17.200 Nicotine dependence, unspecified, uncomplicated; B19.9 Unspecified viral hepatitis without hepatic coma; F19.10 Other psychoactive substance abuse, uncomplicated; Y92.9 Unspecified place or not applicable; Y93.9 Activity, unspecified; Y99.9 Unspecified external cause status
CPT/HCPCS: 71045; 72128; 72131; 73110; 80048; 80076; 81001; 82150; 83605; 84145; 85025; 85610; 85730; 86140; 87040; 87077; 87086; 87186; 87631; 93005; 96361; 96374; 96375; 96376; 99284; J1885; J3360; Q9967

== ENCOUNTER 2024-03-20 22:05 | Inpatient (IN) | payer MEDICAID ==
[~2024-03-20] VITALS: Ht 177.8 cm; Wt 76.0 kg
[2024-03-20 22:08] VITALS: BP 121/86; TEMP 97.9; O2SAT 93
[2024-03-20] MEDS ORDERED: ACETAMINOPHEN TAB 650MG DOSE (2X325MG) PO PRN (23:55)
[2024-03-21 01:20] LABS: GLOMERULAR FILTRATION RATE > 60.0 (>60)
[2024-03-21] MEDS: diphenhydrAMINE 50MG/ML VIAL IM ONE (02:38)
[2024-03-21] MEDS: BUPRENORPHINE HCL 8MG SUBINGUAL TABLET SL SCH (03:42)
[2024-03-21] MEDS: KETOROLAC 30 MG/ML 1ML VIAL IV PRN (03:44)
[2024-03-21] MEDS: SODIUM CHLORIDE 0.9% INJ 10 ML SYR IV PRN (03:44)
[2024-03-21] MEDS ORDERED: HYDROCORTISONE 1% CREAM 30GM TOP PRN (03:45)
[2024-03-21] MEDS: ceFAZolin SOD 2 GM in IV 1 EA IV SCH (04:35)
[2024-03-21 06:00] VITALS: BP 116/71; TEMP 97.9; O2SAT 99
[2024-03-21] MEDS: SODIUM CHLORIDE 0.9% INJ 10 ML SYR IV SCH (06:19)
[2024-03-21] MEDS ORDERED: BUPR8SUB SL (08:02)
[2024-03-21] MEDS ORDERED: CYCL-707 PO (08:02)
[2024-03-21] MEDS ORDERED: HOME MED LIST COMPLETE! XX SCH (08:05)
[2024-03-21 08:06] LABS: ALBUMIN 2.3 G/DL (3.2-5.2); ALKALINE PHOSPHATASE 217 U/L (46-116); ALT/SGPT 50 U/L (7.0-40); AST/SGOT 118 U/L (<34); BILIRUBIN,TOTAL 0.5 MG/DL (0.3-1.2); BLOOD UREA NITROGEN 11 MG/DL (9-23); CALCIUM LEVEL 8.5 MG/DL (8.5-10.1); CARBON DIOXIDE LEVEL 30 MMOL/L (20-31); CHLORIDE LEVEL 101 MMOL/L (98-107); CREATININE FOR GFR 0.33 MG/DL (0.70-1.30); GLOMERULAR FILTRATION RATE > 60.0 (>60); GLUCOSE, FASTING 165 MG/DL (60-100); POTASSIUM SERUM 3.9 MMOL/L (3.5-5.1); SODIUM LEVEL 135 MMOL/L (136-145); TOTAL PROTEIN 7.8 G/DL (5.7-8.2)
[2024-03-21] MEDS: DOCUSATE SODIUM 100MG CAPSULE PO SCH (08:56)
[2024-03-21] MEDS: PANTOPRAZOLE 40MG VIAL IV SCH (08:56)
[2024-03-21] MEDS: MIRALAX *UNIT DOSE* 17GM PACKET PO SCH (08:56)
[2024-03-21] MEDS: CYCLOBENZAPRINE 10MG TABLET PO SCH (08:56)
[2024-03-21] MEDS: MICONAZOLE 2 % POWDER (DESENEX) TOP SCH (08:57)
[2024-03-21] MEDS: HEPARIN SOD (PORCINE) 5000UNITS/ML 1ML VIAL/SYRINGE SQ SCH (08:57)
[2024-03-21] MEDS ORDERED: ENOXAPARIN 40MG/0.4ML SYRINGE (J1650 PER 10MG) SC SCH (09:00)
[2024-03-21 14:20] VITALS: BP 126/86; TEMP 97.9; O2SAT 97
[2024-03-21 20:00] VITALS: BP 108/70; TEMP 98.1; O2SAT 93
[2024-03-21] MEDS: SENNA 8.6 MG TAB (SENOKOT) PO SCH (20:01)
[2024-03-22 06:00] VITALS: BP 109/70; TEMP 98.1; O2SAT 95
[2024-03-22 09:27] LABS: EOS # 0.2 10^3/uL (0.0-0.5); EOS % 6.1 % (0.0-3.0); HEMATOCRIT 34.8 % (42.0-52.0); HEMOGLOBIN 11.1 g/dl (13.5-17.5); LYMPH # 1.5 10^3/uL (1.5-5.0); LYMPH % 41.9 % (24.0-44.0); MEAN CORPUSCULAR HEMOGLOBIN 27.3 pg (27.0-33.0); MEAN CORPUSCULAR HGB CONC 31.9 g/dl (32.0-36.5); MEAN CORPUSCULAR VOLUME 85.5 fl (80.0-96.0); MONO # 0.4 10^3/uL (0.0-0.8); MONO % 10.9 % (2.0-8.0); NEUTROPHILS # 1.5 10^3/uL (1.5-8.5); NEUTROPHILS % 40.5 % (36.0-66.0); PLATELET COUNT, AUTOMATED 165 10^3/uL (150-450); RED BLOOD COUNT 4.07 10^6/uL (4.30-6.10); WHITE BLOOD COUNT 3.6 10^3/uL (4.0-10.0)
[2024-03-22 09:31] LABS: ERYTHROCYTE SEDIMENTATION RATE 72 mm/hr (0-15)
[2024-03-22 09:57] LABS: C REACTIVE PROTEIN QUANTITATIV < 0.40 MG/DL (<1.0)
[2024-03-22 10:05] LABS: PROCALCITONIN 0.09 ng/ml
[2024-03-22 10:34] LABS: HEPATITIS B CORE ANTIBODY IGM NEGATIVE (NEGATIVE)
[2024-03-22 10:48] LABS: ALKALINE PHOSPHATASE 207 U/L (46-116); ALT/SGPT 48 U/L (7.0-40); AST/SGOT 113 U/L (<34); BILIRUBIN,TOTAL 0.5 MG/DL (0.3-1.2); BLOOD UREA NITROGEN 16 MG/DL (9-23); CALCIUM LEVEL 8.4 MG/DL (8.5-10.1); CARBON DIOXIDE LEVEL 28 MMOL/L (20-31); CHLORIDE LEVEL 106 MMOL/L (98-107); CREATININE FOR GFR 0.36 MG/DL (0.70-1.30); GLOMERULAR FILTRATION RATE > 60.0 (>60); GLUCOSE, FASTING 126 MG/DL (60-100); POTASSIUM SERUM 4.1 MMOL/L (3.5-5.1); SODIUM LEVEL 139 MMOL/L (136-145); TOTAL PROTEIN 7.3 G/DL (5.7-8.2)
[2024-03-22 10:51] LABS: HEPATITIS B SURFACE ANTIGEN POSITIVE (NEGATIVE); HEPATITIS C VIRUS ABY INDEX > 11.00 INDEX (<0.8)
[2024-03-22] MEDS: KETOROLAC 30 MG/ML 1ML VIAL IV ONE (11:29)
[2024-03-22 13:56] VITALS: BP 108/69; TEMP 98.1; O2SAT 96
[2024-03-22 21:38] VITALS: BP 108/71; TEMP 98.1; O2SAT 95
[2024-03-23] MEDS: ACETAMINOPHEN *IV* 1,000 MG in IV 1 EA IV ONE (04:11)
[2024-03-23 04:27] VITALS: BP 107/73; TEMP 97.3; O2SAT 96
[2024-03-23] MEDS: NYSTATIN 100,000 UNITS/GM TOPICAL PWD 15GM TOP PRN (06:00)
[2024-03-23 14:00] VITALS: BP 110/74; TEMP 97.7; O2SAT 96
[2024-03-23 20:19] VITALS: BP 119/82; TEMP 97.9; O2SAT 98
[2024-03-24 05:00] VITALS: BP 108/73; TEMP 97.9; O2SAT 96
[2024-03-24 14:00] VITALS: BP 114/93; TEMP 97.5; O2SAT 96
[2024-03-24 14:09] LABS: HEPATITIS C QUANTITATION 3220000 IU/mL (.)
[2024-03-24 21:11] VITALS: BP 111/86; TEMP 98.6; O2SAT 96
[2024-03-24] MEDS: PERCOCET 5MG/325MG TAB PO PRN (21:18)
[2024-03-25] MEDS: PERCOCET 5MG/325MG TAB PO PRN (04:54)
[2024-03-25 05:40] VITALS: BP 110/81; TEMP 98.2; O2SAT 96
[2024-03-25 06:39] LABS: EOS # 0.3 10^3/uL (0.0-0.5); HEMATOCRIT 35.4 % (42.0-52.0); HEMOGLOBIN 11.3 g/dl (13.5-17.5); LYMPH # 1.5 10^3/uL (1.5-5.0); MEAN CORPUSCULAR HGB CONC 31.9 g/dl (32.0-36.5); MEAN CORPUSCULAR VOLUME 84.5 fl (80.0-96.0); MONO # 0.4 10^3/uL (0.0-0.8); MONO % 11.8 % (2.0-8.0); NEUTROPHILS # 1.5 10^3/uL (1.5-8.5); NEUTROPHILS % 40.4 % (36.0-66.0); PLATELET COUNT, AUTOMATED 153 10^3/uL (150-450); RED BLOOD COUNT 4.19 10^6/uL (4.30-6.10); WHITE BLOOD COUNT 3.7 10^3/uL (4.0-10.0)
[2024-03-25 07:02] LABS: ALKALINE PHOSPHATASE 185 U/L (46-116); ALT/SGPT 52 U/L (7.0-40); AST/SGOT 119 U/L (<34); BILIRUBIN,TOTAL 0.5 MG/DL (0.3-1.2); BLOOD UREA NITROGEN 18 MG/DL (9-23); CALCIUM LEVEL 8.5 MG/DL (8.5-10.1); CARBON DIOXIDE LEVEL 26 MMOL/L (20-31); CHLORIDE LEVEL 106 MMOL/L (98-107); CREATININE FOR GFR 0.36 MG/DL (0.70-1.30); GLOMERULAR FILTRATION RATE > 60.0 (>60); GLUCOSE, FASTING 134 MG/DL (60-100); MAGNESIUM LEVEL 1.4 MG/DL (1.8-2.4); POTASSIUM SERUM 3.9 MMOL/L (3.5-5.1); SODIUM LEVEL 137 MMOL/L (136-145); TOTAL PROTEIN 7.3 G/DL (5.7-8.2)
[2024-03-25] MEDS: MAG SULF 1GM/100ML (MAG RUN) 1 GM in IV 1 EA IV SCH (09:25)
[2024-03-25 14:00] VITALS: BP 111/80; TEMP 97.9; O2SAT 97
[2024-03-25 20:12] VITALS: BP 113/83; TEMP 97.7; O2SAT 92
[2024-03-26 04:33] VITALS: BP 108/75; TEMP 97.9; O2SAT 97
[2024-03-26 06:45] LABS: EOS # 0.2 10^3/uL (0.0-0.5); EOS % 6.5 % (0.0-3.0); HEMATOCRIT 36.9 % (42.0-52.0); HEMOGLOBIN 11.7 g/dl (13.5-17.5); LYMPH # 1.5 10^3/uL (1.5-5.0); LYMPH % 41.1 % (24.0-44.0); MEAN CORPUSCULAR HGB CONC 31.7 g/dl (32.0-36.5); MONO # 0.4 10^3/uL (0.0-0.8); MONO % 11.4 % (2.0-8.0); NEUTROPHILS # 1.5 10^3/uL (1.5-8.5); NEUTROPHILS % 40.2 % (36.0-66.0); PLATELET COUNT, AUTOMATED 117 10^3/uL (150-450); RED BLOOD COUNT 4.34 10^6/uL (4.30-6.10); WHITE BLOOD COUNT 3.7 10^3/uL (4.0-10.0)
[2024-03-26 07:03] LABS: ALBUMIN 2.2 G/DL (3.2-5.2); ALKALINE PHOSPHATASE 175 U/L (46-116); ALT/SGPT 46 U/L (7.0-40); AST/SGOT 119 U/L (<34); BILIRUBIN,TOTAL 0.5 MG/DL (0.3-1.2); BLOOD UREA NITROGEN 11 MG/DL (9-23); CARBON DIOXIDE LEVEL 24 MMOL/L (20-31); CHLORIDE LEVEL 107 MMOL/L (98-107); CREATININE FOR GFR 0.33 MG/DL (0.70-1.30); GLOMERULAR FILTRATION RATE > 60.0 (>60); GLUCOSE, FASTING 90 MG/DL (60-100); MAGNESIUM LEVEL 1.5 MG/DL (1.8-2.4); SODIUM LEVEL 137 MMOL/L (136-145); TOTAL PROTEIN 7.6 G/DL (5.7-8.2)
[2024-03-26] MEDS: MAG SULF 1GM/100ML (MAG RUN) 1 GM in IV 1 EA IV SCH (10:18)
[2024-03-26] MEDS ORDERED: CEFA500C2 PO (12:22)
[2024-03-26 14:18] VITALS: BP 109/77; TEMP 97.5; O2SAT 97
[2024-03-26] MEDS ORDERED: ceFAZolin SOD 2 GM in IV 1 EA IV ONE (16:00)
[2024-03-26 21:00] VITALS: BP 108/76; TEMP 98.1; O2SAT 97
[2024-03-26 21:20] VITALS: BP 108/76
[2024-03-27 06:23] LABS: BASO % 0.6 % (0.0-1.0); EOS # 0.3 10^3/uL (0.0-0.5); EOS % 8.8 % (0.0-3.0); HEMATOCRIT 36.9 % (42.0-52.0); HEMOGLOBIN 11.5 g/dl (13.5-17.5); LYMPH # 1.5 10^3/uL (1.5-5.0); LYMPH % 44.7 % (24.0-44.0); MEAN CORPUSCULAR HEMOGLOBIN 27.3 pg (27.0-33.0); MEAN CORPUSCULAR HGB CONC 31.2 g/dl (32.0-36.5); MEAN CORPUSCULAR VOLUME 87.6 fl (80.0-96.0); MONO # 0.4 10^3/uL (0.0-0.8); MONO % 10.3 % (2.0-8.0); NEUTROPHILS # 1.2 10^3/uL (1.5-8.5); PLATELET COUNT, AUTOMATED 136 10^3/uL (150-450); RED BLOOD COUNT 4.21 10^6/uL (4.30-6.10); WHITE BLOOD COUNT 3.4 10^3/uL (4.0-10.0)
[2024-03-27 06:24] VITALS: BP 109/76; TEMP 97; O2SAT 94
[2024-03-27 06:43] LABS: ALBUMIN 2.1 G/DL (3.2-5.2); ALKALINE PHOSPHATASE 172 U/L (46-116); ALT/SGPT 50 U/L (7.0-40); AST/SGOT 115 U/L (<34); BILIRUBIN,TOTAL 0.6 MG/DL (0.3-1.2); BLOOD UREA NITROGEN 11 MG/DL (9-23); CALCIUM LEVEL 8.6 MG/DL (8.5-10.1); CARBON DIOXIDE LEVEL 28 MMOL/L (20-31); CHLORIDE LEVEL 104 MMOL/L (98-107); CREATININE FOR GFR 0.33 MG/DL (0.70-1.30); GLOMERULAR FILTRATION RATE > 60.0 (>60); GLUCOSE, FASTING 154 MG/DL (60-100); MAGNESIUM LEVEL 1.3 MG/DL (1.8-2.4); PHOSPHORUS LEVEL 4.3 MG/DL (2.5-4.9); POTASSIUM SERUM 3.8 MMOL/L (3.5-5.1); SODIUM LEVEL 137 MMOL/L (136-145); TOTAL PROTEIN 7.4 G/DL (5.7-8.2)
[2024-03-27] MEDS: MAGNESIUM OXIDE 400MG TAB (MAG-OX) PO SCH (09:21)
[2024-03-27] MEDS: MAG SULF 1GM/100ML (MAG RUN) 1 GM in IV 1 EA IV SCH (09:22)
== END 2024-03-27 12:30 | disposition home or self-care (01) | DRG 344 ==
LOC: M MSPAV 22:05 → EEVIPCON 22:05
PROVIDERS: ADMIT Student in an Organized Health Care Education/Training Program; ATTEND Hospitalist
DX: M46.26 Osteomyelitis of vertebra, lumbar region (principal); K68.12 Psoas muscle abscess; K73.9 Chronic hepatitis, unspecified; I08.1 Rheumatic disorders of both mitral and tricuspid valves; L25.9 Unspecified contact dermatitis, unspecified cause; S33.140D Subluxation of L4/L5 lumbar vertebra, subsequent encounter; R29.6 Repeated falls; F10.10 Alcohol abuse, uncomplicated; F19.90 Other psychoactive substance use, unspecified, uncomplicated; Z79.2 Long term (current) use of antibiotics